=== PATIENT | female | born 1965 | race Asian ===

== ENCOUNTER → 2017-04-12 | Outpatient (CLI) | payer OTHER | END | disposition home or self-care (01) | LOC: MAMMO 08:04 | DX: Z12.31 Encounter for screening mammogram for malignant neoplasm of breast (principal) | CPT/HCPCS: G0202 ==

== ENCOUNTER → 2018-07-12 | Day surgery (SDC) | payer OTHER ==
[~2018-07-12] MED LIST: HYDR50CA2 PO; IV RINGERS,LACTATED 1000ML 1,000 ML IV SCH; LIDOCAINE 2% PF 5 ML VIAL. ONE; PROPOFOL 40 ML IV ONE
[2018-07-12 10:31] VITALS: BP 109/68
--- NOTE | 2018-07-13 01:14 | CONS ---
DATE OF CONSULTATION: 07/12/2018 REASON FOR CONSULTATION: Colorectal screening. HISTORY OF PRESENT ILLNESS: A 53-year-old female, whose past medical history is significant for diverticulitis, osteoarthrosis, is seen for a screening colon exam. Bowel habits are regular at this time without diarrhea or constipation. There has been no melena and/or hematochezia. She has had a prior diverticulitis, which responded to antibiotics. In addition, on the CAT scan, hepatic lesions were encountered and/or hepatic adenoma or focal nodular hyperplasia and surveillance imaging in 6 months to reassess will be coordinated. She is otherwise doing well. No additional complaints. PAST MEDICAL HISTORY: Osteoarthrosis, diverticulitis. ALLERGIES: None. MEDICATIONS: Includes hydroxyzine pamoate 50 mg daily. FAMILY HISTORY: Unknown. SOCIAL HISTORY: She is a social drinker, nonsmoker. PAST SURGICAL HISTORY: Noncontributory. REVIEW OF SYSTEMS: As above. PHYSICAL EXAMINATION: GENERAL: Reveals a well-nourished, well-developed female who is alert and cooperative, in no acute distress. VITAL SIGNS: Pulse 70, respiratory rate is 18. HEENT: Reveals normocephalic and atraumatic head. Pupils and extraocular muscles are not tested. Sclerae are anicteric. NECK: Supple. LUNGS: Clear. CARDIOVASCULAR: Reveals an S1, S2 without S3, S4 or appreciable murmur. ABDOMEN: Reveals soft abdomen, normal bowel sounds without appreciable hepatosplenomegaly. EXTREMITIES: Reveals no cyanosis, clubbing or edema. IMPRESSION: Colorectal screening with history of diverticulitis is recommended at that time. Risks and benefits of procedure including risk of hemorrhage and perforation during the operation have been discussed. The patient is willing to proceed. AJAY STRAUSS MD DR: ODETTE/marissa JOB#: [id number] / [id number]
--- NOTE | 2018-07-15 16:07 | PATHOLOGY ---
[facility] Accession Number: [id number] . 01 Material submitted: . SIGMOID POLYP . 01 Clinical history: . Colon screening . 02 Diagnosis: Colon biopsy, sigmoid polyp: - Tubular adenoma. (JPM:cdoy; 07/15/2018) QMS/07/15/2018 . 02 Comment: There is no high-grade dysplasia or evidence of malignancy. (JPM:cody; 07/15/2018) . 02 Electronically signed: . Jersey Montoya MD, Pathologist NPI- [id number] . 01 Gross description: . The specimen is received in formalin, labeled "Brandon, Trini, sigmoid polyp", is a trinidad, rubbery, sessile polyp measuring 0.4 x 0.3 x 0.2 cm, inked black, bisected and entirely submitted in A1. ([facility]; 07/12/2018) SHS/SHS . 02 Pathologist provided ICD-10: D12.5 . 02 CPT . 823325 Specimen Comment: A courtesy copy of this report has been sent to Specimen Comment: [phone], . Specimen Comment: Report sent to / DR ZHAO Performed at: 01 [facility] [address], [place], [place] [id number] MD Owen Sanchez MD Phone: [phone] Performed at: 02 [facility] [address], [place] [id number] MD Jersey Montoya MD Phone: [phone]
== END | disposition home or self-care (01) ==
LOC: SURG 08:53
PROVIDERS: ATTEND Internal Medicine Gastroenterology
DX: Z12.11 Encounter for screening for malignant neoplasm of colon (principal); D12.5 Benign neoplasm of sigmoid colon; K57.30 Diverticulosis of large intestine without perforation or abscess without bleeding; K64.0 First degree hemorrhoids; M19.90 Unspecified osteoarthritis, unspecified site; Z87.19 Personal history of other diseases of the digestive system; Z79.899 Other long term (current) drug therapy; Z72.89 Other problems related to lifestyle
CPT/HCPCS: 45385; 88305; J2001; J2704; 45380

== ENCOUNTER → 2018-09-07 | Outpatient (CLI) | payer OTHER ==
[2018-07-12 10:31] VITALS: BP 109/68
[~2018-09-07] MED LIST changes: -IV RINGERS,LACTATED 1000ML 1,000 ML IV SCH; -LIDOCAINE 2% PF 5 ML VIAL. ONE; -PROPOFOL 40 ML IV ONE
--- NOTE | 2018-09-10 10:31 | RAD ---
DATE: 09/07/2018 EXAM: MAMMO RAYSA SCREENING BILATERAL HISTORY: Routine screening COMPARISON: 04/12/2017 This study was interpreted with the benefit of Computerized Aided Detection (CAD). Breast Density: DENSE The breast parenchyma is dense, which could reduce the sensitivity of mammography. Breast parenchyma level density D. FINDINGS: 2-D and 3-D tomosynthesis imaging was performed in CC and MLO projections. The extreme density of these breasts limits the sensitivity of mammography. No new or enlarging breast densities are seen. Benign type calcifications are present. No suspicious microcalcifications have developed. IMPRESSION: 1. Extremely dense breasts. 2. Stable mammograms without evidence of malignancy. BI-RADS CATEGORY: 2 BENIGN FINDING(S) RECOMMENDED FOLLOW-UP: 12M 12 MONTH FOLLOW-UP PQRS compliance statement: Patient information was entered into a reminder system with a target due date for the next mammogram. Mammography is a sensitive method for finding small breast cancers, but it does not detect them all and is not a substitute for careful clinical examination. A negative mammogram does not negate a clinically suspicious finding and should not result in delay in biopsying a clinically suspicious abnormality. "Our facility is accredited by the [employer] Mammography Program."
== END | disposition home or self-care (01) ==
LOC: MAMMO 10:05
PROVIDERS: ATTEND Obstetrics & Gynecology
DX: Z12.31 Encounter for screening mammogram for malignant neoplasm of breast (principal); N64.89 Other specified disorders of breast
CPT/HCPCS: 77063; 77067

== ENCOUNTER → 2018-11-26 | Outpatient (CLI) | payer OTHER ==
[2018-07-12 10:31] VITALS: BP 109/68
[~2018-11-26] VITALS: Ht 160 cm; Wt 59.0 kg
[~2018-11-26] MED LIST changes: +NORMAL SALINE IV ONE; +SINCALIDE IV ONE
--- NOTE | 2018-11-26 09:41 | RAD ---
Complete abdominal ultrasound 11/26/2018 INDICATION: Abdominal pain, right upper abdomen COMPARISON STUDY: None FINDINGS: Ultrasound evaluation of the abdomen was performed. Static images are submitted to PACS. Partially visualized portions of the pancreas are grossly unremarkable. Visualized portions of the aorta and IVC are grossly unremarkable. There is an echogenic mass in the right lobe of liver measuring 4.4 x 4.2 x 4.2 cm. The liver appears to be normal in size. No other focal hepatic lesions are seen. The gallbladder is normal appearance without evidence of wall thickening, most pronounced, or sludge. Common bile duct is nondilated at 4 mm. Right kidney is normal in appearance measuring 10.4 cm in length. The spleen is normal in size measuring 8 cm in length. Left kidney is unremarkable in appearance measuring 11.5 cm in length. IMPRESSION: Echogenic, geographic mass in the right liver measuring 4.4 cm in diameter. The appearance is nonspecific. Recommend further characterization via hepatic protocol MRI. Electronically signed by: Joe Andrews MD (11/26/2018 9:38 AM) [facility]
--- NOTE | 2018-11-26 15:41 | RAD ---
HEPATOBILIARY SCAN WITH EJECTION FRACTION 11/26/2018 3:38 PM History: Right upper quadrant abdominal pain. Procedure: Serial static images are obtained of the liver and biliary system in the frontal projection following IV administration of 5.5 mCi of Technetium 99m Choletec. After filling of the gallbladder, 1.2 mcg of sincalide were infused over 30 minutes and dynamic imaging continued over this period. The gallbladder ejection fraction was calculated. Findings: There is prompt hepatic clearance of tracer from the blood pool. There is homogeneous distribution throughout the liver. The gallbladder ejection fraction measures 17% (normal gallbladder EF is 35% or greater). IMPRESSION: 1. The cystic duct and common bile duct are patent. Negative for acute cholecystitis. 2. The gallbladder ejection fraction abnormally low. Findings may indicate chronic cholecystitis or gallbladder dyskinesia. Electronically signed by: Joe Andrews MD (11/26/2018 3:39 PM) [facility]
== END | disposition home or self-care (01) ==
LOC: US 15:22
PROVIDERS: ATTEND Internal Medicine Gastroenterology
DX: R16.0 Hepatomegaly, not elsewhere classified (principal)
CPT/HCPCS: 76700; 78227; A9537; J2805

== ENCOUNTER 2018-12-12 06:43 | Day surgery (SDC) | payer OTHER ==
[~2018-12-12] VITALS: Ht 162.6 cm; Wt 60.0 kg
[~2018-12-12 06:43] MED LIST changes: +BUPIVACAINE-EPI 0.25%-1:200000 MPF 30 ML VIAL. INJ ONE; +CHLO4TAB20 PO; +INDOCYANINE GREEN 2.5 MG in TOTAL VOLUME SYRINGE 1 ML IVP ONE; +INDOCYANINE GREEN 25 MG VIAL. IVP ONE; -NORMAL SALINE IV ONE; -SINCALIDE IV ONE
[2018-12-12] MEDS ORDERED: LIDOCAINE 1% PF 2 ML VIAL. ID PRN (07:00)
[2018-12-12] MEDS ORDERED: HYDROmorphone 2 MG/ML VIAL IV PRN (07:00)
[2018-12-12] MEDS ORDERED: ONDANSETRON PF 4 MG/2 ML VIAL. IV PRN (07:00)
[2018-12-12] MEDS ORDERED: fentaNYL PF VIAL 100 MCG/2 ML VIAL IV PRN (07:00)
[2018-12-12] MEDS ORDERED: PROCHLORPERAZINE 10 MG/2 ML VIAL. IV PRN (07:00)
[2018-12-12] MEDS ORDERED: MORPHINE SULFATE 2 MG/ML VIAL. IV PRN (07:00)
[2018-12-12] MEDS: IV RINGERS,LACTATED 1000ML 1,000 ML IV SCH ×2 (07:19→09:35)
[2018-12-12] MEDS ORDERED: ONDANSETRON PF 4 MG/2 ML VIAL. ONE (07:45)
[2018-12-12] MEDS ORDERED: PROPOFOL 20 ML IV ONE (07:45)
[2018-12-12] MEDS ORDERED: ACETAMINOPHEN 500 MG TABLET PO ONE (07:45)
[2018-12-12] MEDS ORDERED: LIDOCAINE 2% PF 5 ML VIAL. ONE (07:45)
[2018-12-12] MEDS ORDERED: DEXAMETHASONE SOD PHOS 20 MG/5 ML VIAL. ONE (07:45)
[2018-12-12] MEDS ORDERED: MIDAZOLAM HCL/PF 2 MG/2 ML VIAL. ONE (07:46)
[2018-12-12] MEDS ORDERED: fentaNYL PF VIAL 100 MCG/2 ML VIAL ONE (07:46)
[2018-12-12] MEDS ORDERED: ROCURONIUM 50 MG/5 ML VIAL. ONE (07:46)
[2018-12-12] MEDS ORDERED: PHENYLEPHRINE in 0.9% NACL PF 1 MG/10 ML SYRINGE. IV ONE (08:26)
[2018-12-12] MEDS ORDERED: GLYCOPYRROLATE 1 MG/5 ML VIAL. ONE (08:26)
[2018-12-12] MEDS ORDERED: ePHEDrine PF IN SALINE 50 MG/10 ML SYRINGE. IV ONE (08:27)
[2018-12-12] MEDS ORDERED: NEOSTIGMINE METHYLSULFATE 5 MG/5 ML SYRINGE. ONE (08:43)
[2018-12-12] MEDS ORDERED: SEVOFLURANE 61 TO 120 MINUTES. IH ONE (08:43)
[2018-12-12] MEDS ORDERED: KETOROLAC 30 MG/ML INJ FOR OR. INJ ONE (09:05)
--- NOTE | 2018-12-12 09:05 | PDOC4 ---
Operative Note Operative Note Date: 12/12/2018 Preoperative diagnosis: Biliary dyskinesia Postoperative diagnosis: Same Procedure: Robotic-assisted laparoscopic cholecystectomy Surgeon: Chris Specimen: Gallbladder Dictation: Patient is a 53-year-old female is complained of right upper quadrant abdominal pain HIDA scan showing ejection fraction of 17%. Procedure of robotic- assisted laparoscopic cholecystectomy was explained to the patient in detail all risks benefits were also discussed occluding bleeding infection injury to intra- abdominal contents possibly necessitating further open operations alternatives to this procedure also discussed with patient who seemed to understand and gave both verbal and written consent to have the procedure performed. Patient was taken to the operating room placed in supine position general anesthesia was initiated once patient was sleep and intubated patient's abdomen was prepped and draped usual sterile fashion using ChloraPrep. An area just below the umbilicus was injected with quarter percent Marcaine with epinephrine incision was andrew blade scalpel and a Veress needle was placed within the abdomen creating pneumoperitoneum once this was complete 8mm da David port was placed and the camera was placed within the abdomen and inspected. No other abnormalities were noted a 8mm da David port was placed in the right mid abdomen and one in the left mid abdomen dementia robot was brought in and docked all port sites using a grasper and cautery the gallbladder was grasped and retracted towards the right upper quadrant the adherent tissues of the triangle were taken down with blunt and sharp dissection using a clot cautery exposing the cystic duct and cystic artery both were clipped with hemo-lock clips. Prior to this the fluorescein dye was used no accessory ducts were noted as good anatomy of the cystic and common bile duct. Cystic duct was transected as well as the cystic artery. The gallbladder was taken off the liver with a hook cautery. Surgeon returned to the operative field using a grasper and a 8 mm bag the gallbladder was placed within the Endo Catch bag and removed from the right mid abdominal port. Ports were all removed the pneumoperitoneum reduced all port sites were closed for septic and a Monocryl Mastisol Steri-Strips and island dressings were applied. Patient was awakened and asked bated operating room taken to recovery in stable condition all sponge instrument needle counts listed as correct estimated blood loss less than 5 mL. RENAE PAYNE MD Dec 12, 2018 09:05
--- NOTE | 2018-12-12 09:07 | DISCH ---
DISCHARGE INSTRUCTIONS Condition on Discharge Condition on Discharge: Stable Activity After Discharge Activity Instructions for Disc: Avoid exertion Other activity instructions: no lifting more than 20 pounds for 2 weeks Diet after Discharge Diet after Discharge: Low Fat Wound Incision Care Other wound/incision instructi: May shower in 24 hours Contacting the after DC Call your doctor for: If your condition worsens Follow-Up Follow up with: Dr. Payne in 2 weeks RENAE PAYNE MD Dec 12, 2018 09:07
[2018-12-12] MEDS: fentaNYL PF VIAL 100 MCG/2 ML VIAL IV PRN ×2 (09:35→10:03)
[2018-12-12] MEDS ORDERED: OXYC1TAB15 PO (09:38)
[2018-12-12] MEDS ORDERED: oxyCODONE/APAP 5/325 1 TAB TABLET PO ONE (10:00)
[2018-12-12 10:37] VITALS: BP 114/55
--- NOTE | 2018-12-13 18:06 | PATHOLOGY ---
[facility] Accession Number: [id number] . 01 Material submitted: . gallbladder - GALLBLADDER . 01 Clinical history: . Biliary dyskinesia . 02 Diagnosis: Gallbladder, laparoscopic cholecystectomy: - Mild chronic cholecystitis. (JPM:manager gaming; 12/13/2018) MBR/12/13/2018 . 02 Comment: No calculi are identified within the gallbladder lumen or specimen container. Sections of the gallbladder show congestion and focal very mild chronic inflammation. There is no evidence of malignancy. (JPM:manager gaming; 12/13/2018) . 02 Electronically signed: . Jersey Montoya MD, Pathologist NPI- [id number] . 01 Gross description: . The specimen is received in formalin, labeled "Trini Taylor, gallbladder". Received is an intact gallbladder measuring 7.8 x 3.3 x 3.3 cm in greatest dimensions displaying a blue-fernandes serosal surface. Opening the specimen reveals a velvety, bile-stained mucosa with a gallbladder wall thickness of 0.1 cm. Calculi are not present, and no masses or lesions are noted grossly. Strategic Buyer sections, to include the proximal margin, are submitted in cassette A1. (CAA; 12/12/2018) QAC/QAC . 02 Pathologist provided ICD-10: K81.1 . 02 CPT . 568616 Specimen Comment: A courtesy copy of this report has been sent to Specimen Comment: [phone], . Specimen Comment: Report sent to and Performed at: [address], [place], [place] [id number] MD Owen Sanchez MD Phone: [phone] Performed at: 02 [facility] [address] [place], [place] [id number] MD Jersey Montoya MD Phone: [phone]
== END 2018-12-12 13:08 | disposition home or self-care (01) ==
LOC: SURG 06:43
PROVIDERS: ATTEND Surgery
DX: K81.1 Chronic cholecystitis (principal); Z86.010 Personal history of colon polyps; Z72.89 Other problems related to lifestyle; Z87.39 Personal history of other diseases of the musculoskeletal system and connective tissue; Z98.890 Other specified postprocedural states
CPT/HCPCS: 47562; 88304; A7015; J0171; J1100; J1885; J2001; J2250; J2370; J2405; J2704; J2710; J3010; J3490; J7030; J7120; S2900

== ENCOUNTER 2018-12-15 11:57 | Emergency (ER) | payer OTHER ==
[~2018-12-15] VITALS: Ht 162.6 cm; Wt 59.0 kg
[~2018-12-15 11:57] MED LIST changes: -BUPIVACAINE-EPI 0.25%-1:200000 MPF 30 ML VIAL. INJ ONE; -INDOCYANINE GREEN 2.5 MG in TOTAL VOLUME SYRINGE 1 ML IVP ONE; -INDOCYANINE GREEN 25 MG VIAL. IVP ONE; +OXYC1TAB15 PO
[2018-12-15] MEDS ORDERED: IV NORMAL SALINE 1000ML BAG 1,000 ML IV SCH (12:18)
--- NOTE | 2018-12-15 12:27 | PHYS DOC ---
Past Medical History Past Medical History: Arthritis Past Surgical History: Cholecystectomy Drug Use: None Adult General Chief Complaint Chief Complaint: POST-OP PROBLEM HPI HPI Patient is a 53 year old female who presents with RLQ abdominal pain and vomiting Symptoms started last night, unable to keep down foods or fluids today 12/12 Had GB removed with DR Perez dysfunction, no stones. She had been doing well. Pain post op was upper and RUQ, dull ache. 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 No fevers. No UTI symptoms She is resting in no distress. Incisions healing well Review of Systems Review of Systems Constitutional: Denies fever or chills [] Eyes: Denies change in visual acuity, redness, or eye pain [] HENT: Denies nasal congestion or sore throat [] Respiratory: Denies cough or shortness of breath [] Cardiovascular: No additional information not addressed in HPI [] GI: Denies bloody stools or diarrhea [] C/o RLQ abdominal pain and vomiting : Denies dysuria or hematuria [] Musculoskeletal: Denies back pain or joint pain [] Integument: Denies rash or skin lesions [] Neurologic: Denies headache, focal weakness or sensory changes [] Endocrine: Denies polyuria or polydipsia [] All other systems were reviewed and found to be within normal limits, except as documented in this note. Current Medications Current Medications Current Medications Medications (Trade) Dose Ordered Sig/Nish Start Time Stop Time Status Last Admin Dose Admin Info (CONTRAST GIVEN -- Rx MONITORING) 1 each PRN DAILY PRN 12/15/18 13:30 12/15/18 16:21 DC Iohexol (Omnipaque 300 Mg/ml) 75 ml 1X ONCE 12/15/18 13:30 12/15/18 13:31 DC 12/15/18 14:13 75 ML Morphine Sulfate (Morphine Sulfate) 4 mg PRN Q15MIN PRN 12/15/18 12:30 12/15/18 16:21 DC 12/15/18 12:38 4 MG Ondansetron HCl (Zofran) 4 mg 1X ONCE 12/15/18 12:30 12/15/18 12:31 DC 12/15/18 12:38 4 MG Sodium Chloride 1,000 ml @ 1,000 mls/hr Q1H 12/15/18 12:18 12/15/18 13:17 DC 12/15/18 12:38 1,000 MLS/HR Allergies Allergies Allergies Coded Allergies Type Severity Reaction Last Updated Verified No Known Drug Allergies 12/12/18 No Physical Exam Physical Exam Constitutional: Well developed, well nourished, no acute distress, non-toxic appearance. [] HENT: Normocephalic, atraumatic, bilateral external ears normal, oropharynx mois t, no oral exudates, nose normal. [] Eyes: PERRLA, EOMI, conjunctiva normal, no discharge. [] Neck: Normal range of motion, no tenderness, supple, no stridor. [] Cardiovascular:Heart rate regular rhythm, no murmur [] Lungs & Thorax: Bilateral breath sounds clear to auscultation [] Abdomen: Bowel sounds normal, soft, no masses, no pulsatile masses. [] Incisions appears well, no redness or drainage, well approximated. Acute RLQ pain with guarding and rebound. Skin: Warm, dry, no erythema, no rash. [] Back: No tenderness, no CVA tenderness. [] Extremities: No tenderness, no cyanosis, no clubbing, ROM intact, no edema. [] Neurologic: Alert and oriented X 3, normal motor function, normal sensory func tion, no focal deficits noted. [] Psychologic: Affect normal, judgement normal, mood normal. [] Current Patient Data Vital Signs Vital Signs Date Time Temp Pulse Resp B/P (MAP) Pulse Ox O2 Delivery O2 Flow Rate FiO2 12/15/18 15:31 82 18 128/72 (90) 97 Room Air 12/15/18 12:00 97.8 97.8 Lab Values Laboratory Tests Test 12/15/18 12:14 White Blood Count 7.4 x10^3/uL (4.0-11.0) Red Blood Count 4.30 x10^6/uL (3.50-5.40) Hemoglobin 13.7 g/dL (12.0-15.5) Hematocrit 39.8 % (36.0-47.0) Mean Corpuscular Volume 93 fL (79-100) Mean Corpuscular Hemoglobin 32 pg (25-35) Mean Corpuscular Hemoglobin Concent 34 g/dL (31-37) Red Cell Distribution Width 12.9 % (11.5-14.5) Platelet Count 271 x10^3/uL (140-400) Neutrophils (%) (Auto) 84 % (31-73) H Lymphocytes (%) (Auto) 10 % (24-48) L Monocytes (%) (Auto) 5 % (0-9) Eosinophils (%) (Auto) 0 % (0-3) Basophils (%) (Auto) 0 % (0-3) Neutrophils # (Auto) 6.2 x10^3/uL (1.8-7.7) Lymphocytes # (Auto) 0.7 x10^3/uL (1.0-4.8) L Monocytes # (Auto) 0.4 x10^3/uL (0.0-1.1) Eosinophils # (Auto) 0.0 x10^3/uL (0.0-0.7) Basophils # (Auto) 0.0 x10^3/uL (0.0-0.2) Sodium Level 136 mmol/L (136-145) Potassium Level 4.0 mmol/L (3.5-5.1) Chloride Level 98 mmol/L (98-107) Carbon Dioxide Level 26 mmol/L (21-32) Anion Gap 12 (6-14) Blood Urea Nitrogen 9 mg/dL (7-20) Creatinine 0.9 mg/dL (0.6-1.0) Estimated GFR (Cockcroft-Gault) 65.2 BUN/Creatinine Ratio 10 (6-20) Glucose Level 134 mg/dL (70-99) H Calcium Level 9.4 mg/dL (8.5-10.1) Total Bilirubin 0.8 mg/dL (0.2-1.0) Aspartate Amino Transferase (AST) 352 U/L (15-37) H Alanine Aminotransferase (ALT) 399 U/L (14-59) H Alkaline Phosphatase 127 U/L (46-116) H Total Protein 8.5 g/dL (6.4-8.2) H Albumin 3.9 g/dL (3.4-5.0) Albumin/Globulin Ratio 0.8 (1.0-1.7) L Lipase 155 U/L (73-393) Laboratory Tests 12/15/18 12:14 Laboratory Tests 12/15/18 12:14 EKG EKG [] Radiology/Procedures Radiology/Procedures [] PATIENT: LIZZ BOLDEN ACCOUNT: [id number] : 1965 LOCATION: ER AGE: 53 SEX: F EXAM STATUS: REG ER ORD. PHYSICIAN: JUDITH OTT APRN REASON: RLQ abdominal pain, vomiting, recent GB removal PROCEDURE: CT ABD PELV W/ IV CONTRST ONLY CT ABD PELV W/ IV CONTRST ONLY Indication: Right lower quadrant pain, vomiting, recent cholecystectomy Exposure: One or more of the following individualized dose reduction techniques were utilized for this examination: 1. Automated exposure control 2. Adjustment of the mA and/or kV according to patient size 3. Use of iterative reconstruction technique. Technique: Intravenous contrast was given. No oral contrast per request. Comparison: None FINDINGS: Mild atelectasis in the lung bases. Hypodense mass in the right lobe of the liver measures 4.1 cm. This demonstrates a mildly enhancing nodular periphery. No other liver mass is identified. Spleen unremarkable. Pancreas unremarkable although margins are difficult to delineate from adjacent unopacified bowel. No evidence of adrenal mass. Kidneys demonstrate symmetric enhancement without hydronephrosis or mass. Gallbladder is surgically absent. There is mild stranding and ill-defined fluid density in the gallbladder fossa with fluid extending into the right paracolic gutter. Mild perihepatic fluid. Moderate pelvic ascites. All these components of fluid measure less than 20 Hounsfield units, compatible with simple fluid. No organized fluid collection or abscess is seen. Mild intrahepatic biliary ductal dilatation., Common bile duct is mildly dilated, measuring 9 mm. Aorta is nonaneurysmal. No significant lymph node enlargement. Urinary bladder is grossly unremarkable. No evidence of pelvic mass. No significant small bowel dilatation to suggest obstruction. Hdje-xc-ssocrkbr retained stool in the colon. No definite evidence of acute colitis. The appendix is within normal limits. No evidence of pneumoperitoneum. Vertebral body height and alignment are intact. Small lucent lesion within L1 vertebral body, likely a hemangioma. No aggressive bone destruction is seen. Dense breasts are partially visualized bilaterally. IMPRESSION: 1. Mild ill-defined fluid density and stranding in the gallbladder fossa, as could be expected postoperatively. However, there is also mild right perihepatic and paracolic gutter fluid and moderate pelvic fluid. Significance is not certain, but bile leak or peritonitis is not excludable. 2. Large mass in the right lobe of liver, may represent a hemangioma. Nonemergent confirmation could be obtained with multiphase CT of the liver or MRI of the liver. Electronically signed by: Donato Costello MD (12/15/2018 2:02 PM) [facility] Impressions: RLQ abdominal pain, post op pain, vomiting Course & Med Decision Making Course & Med Decision Making Pertinent Labs and Imaging studies reviewed. (See chart for details) []Post op GB 12/12, was doing well until last night, new pain to the RLQ with vomiting Surgical incisions appear well. Will obtain labs and CT IV fluids pain and nausea control Pain controlled, she reports she is feeling better. VSS Discussed lab and CT. 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 Discussed CT finding and bile leak? Schaller and zofran Continue liquid diet. Call Surgery for follow up with in 48 hours, discussed strict return precautions, home care and reasons to return to the ER Dragon Disclaimer Dragon Disclaimer This electronic medical record was generated, in whole or in part, using a voice recognition dictation system. Departure Departure Impression: Primary Impression: Right lower quadrant abdominal pain Additional Impression: Pelvic fluid collection Referrals: DEIRDRE ZHAO MD (PCP) RENAE PEREZ MD Patient Instructions: Abdominal Pain Additional Instructions: Go home and rest Medications as prescribed CT with concerns of pelvic fluid, questionable bile leak. I discussed your case with Dr Alves, general surgery Call the office first thing Sunday for follow up Return immediately for uncontrolled pain vomiting or fevers Problem Qualifiers JUDITH OTT APRN Dec 15, 2018 12:26
[2018-12-15] MEDS ORDERED: ONDANSETRON PF 4 MG/2 ML VIAL. IV ONE (12:30)
[2018-12-15] MEDS ORDERED: MORPHINE SULFATE 4 MG/ML VIAL. IV/SQ PRN (12:30)
[2018-12-15 12:32] LABS: BASO % 0 % (0-3); EOS % 0 % (0-3); HEMATOCRIT 39.8 % (36.0-47.0); HEMOGLOBIN 13.7 g/dL (12.0-15.5); LYMPH # 0.7 x10^3/uL (1.0-4.8); LYMPH % 10 % (24-48); MEAN CORPUSCULAR HEMOGLOBIN 32 pg (25-35); MEAN CORPUSCULAR HGB CONC 34 g/dL (31-37); MEAN CORPUSCULAR VOLUME 93 fL (79-100); MONO # 0.4 x10^3/uL (0.0-1.1); MONO % 5 % (0-9); NEUT # 6.2 x10^3/uL (1.8-7.7); NEUT % 84 % (31-73); PLATELET COUNT 271 x10^3/uL (140-400); RED CELL DISTRIBUTION WIDTH 12.9 % (11.5-14.5); WHITE BLOOD COUNT 7.4 x10^3/uL (4.0-11.0)
[2018-12-15 12:37] LABS: CALCIUM 9.4 mg/dL (8.5-10.1); CREATININE 0.9 mg/dL (0.6-1.0); GFR 65.2
[2018-12-15 12:43] LABS: ALBUMIN 3.9 g/dL (3.4-5.0); ALBUMIN/GLOBULIN RATIO 0.8 (1.0-1.7); TOTAL BILIRUBIN 0.8 mg/dL (0.2-1.0); TOTAL PROTEIN 8.5 g/dL (6.4-8.2)
[2018-12-15] MEDS ORDERED: CONTRAST GIVEN. MC PRN (13:30)
[2018-12-15] MEDS ORDERED: IOHEXOL 300 MG/ML 100ML VIAL. IV ONE (13:30)
--- NOTE | 2018-12-15 14:04 | RAD ---
CT ABD PELV W/ IV CONTRST ONLY Indication: Right lower quadrant pain, vomiting, recent cholecystectomy Exposure: One or more of the following individualized dose reduction techniques were utilized for this examination: 1. Automated exposure control 2. Adjustment of the mA and/or kV according to patient size 3. Use of iterative reconstruction technique. Technique: Intravenous contrast was given. No oral contrast per request. Comparison: None FINDINGS: Mild atelectasis in the lung bases. Hypodense mass in the right lobe of the liver measures 4.1 cm. This demonstrates a mildly enhancing nodular periphery. No other liver mass is identified. Spleen unremarkable. Pancreas unremarkable although margins are difficult to delineate from adjacent unopacified bowel. No evidence of adrenal mass. Kidneys demonstrate symmetric enhancement without hydronephrosis or mass. Gallbladder is surgically absent. There is mild stranding and ill-defined fluid density in the gallbladder fossa with fluid extending into the right paracolic gutter. Mild perihepatic fluid. Moderate pelvic ascites. All these components of fluid measure less than 20 Hounsfield units, compatible with simple fluid. No organized fluid collection or abscess is seen. Mild intrahepatic biliary ductal dilatation., Common bile duct is mildly dilated, measuring 9 mm. Aorta is nonaneurysmal. No significant lymph node enlargement. Urinary bladder is grossly unremarkable. No evidence of pelvic mass. No significant small bowel dilatation to suggest obstruction. Leyc-ep-kgkdafkk retained stool in the colon. No definite evidence of acute colitis. The appendix is within normal limits. No evidence of pneumoperitoneum. Vertebral body height and alignment are intact. Small lucent lesion within L1 vertebral body, likely a hemangioma. No aggressive bone destruction is seen. Dense breasts are partially visualized bilaterally. IMPRESSION: 1. Mild ill-defined fluid density and stranding in the gallbladder fossa, as could be expected postoperatively. However, there is also mild right perihepatic and paracolic gutter fluid and moderate pelvic fluid. Significance is not certain, but bile leak or peritonitis is not excludable. 2. Large mass in the right lobe of liver, may represent a hemangioma. Nonemergent confirmation could be obtained with multiphase CT of the liver or MRI of the liver. Electronically signed by: Donato Costello MD (12/15/2018 2:02 PM) [facility]
[2018-12-15 15:31] VITALS: BP 128/72
== END 2018-12-15 16:18 | disposition home or self-care (01) ==
LOC: ER 11:57
DX: G89.18 Other acute postprocedural pain (principal); R10.11 Right upper quadrant pain; R10.31 Right lower quadrant pain; R18.8 Other ascites; R11.10 Vomiting, unspecified; Z90.49 Acquired absence of other specified parts of digestive tract
CPT/HCPCS: 36415; 74177; 80053; 83690; 85025; 96361; 96374; 96375; 99285; J2270; J2405; J7030; Q9967

== ENCOUNTER 2018-12-17 11:01 | Inpatient (IN) | payer OTHER ==
[~2018-12-17] VITALS: Ht 162.6 cm; Wt 59.9 kg
[2018-12-17 12:09] VITALS: BP 107/59
[2018-12-17] MEDS ORDERED: 0.9 % SODIUM CHLORIDE 10 ML DISP.SYRIN. IV PRN (12:15)
--- NOTE | 2018-12-17 12:30 | PDOC1 ---
MELISSA RANDOLPH LINSEED OIL PRESS TENDER 12/17/18 1230: History and Physical Date of Admission Date of Admission DATE: 12/17/18 TIME: 12:25 Identification/Chief Complaint Chief Complaint abdominal pain Source Source: Chart review, Patient History of Present Illness History of Present Illness S/p lap aleksandra 4 days ago. Abdominal pain, swelling started Sunday. Seen at [facility] ER 12/15--elevated LFTS, and CT with small amount of fluid in GB fossa. Seen in clinic today, continued pain, emesis x 1 Past Medical History GI: Diverticulosis Past Surgical History Past Surgical History: Cholecystectomy Current Medications Current Medications Current Medications Sodium Chloride (Normal Saline Flush) 3 ml QSHIFT PRN IV AFTER MEDS AND BLOOD DRAWS; Start 12/17/18 at 12:15 Sodium Chloride 1,000 ml @ 100 mls/hr Q10H IV ; Start 12/17/18 at 12:04 Ondansetron HCl (Zofran) 4 mg PRN Q4HRS PRN IV NAUSEA/VOMITING; Start 12/17/18 at 12:15 Active Scripts Active Reported Percocet 5-325 Mg Tablet (Oxycodone/Acetaminophen) 1 Each Tablet 1-2 Tab PO Q4-6HRS PRN LAST DOSE GIVEN: Chlorpheniramine Maleate 4 Mg Tablet 4 Mg PO PRN PRN Hydroxyzine Pamoate 50 Mg Capsule 100 Mg PO DAILY Allergies Allergies: Coded Allergies: No Known Drug Allergies (Unverified , 12/12/18) ROS General: No: Chills, Other (fevers) PSYCHOLOGICAL ROS: No: Anxiety, Depression Eyes: No Blurry vision, No Double vision HEENT: No: Heacaches, Sore Throat Hematological and Lymphatic: No: Bleeding Problems, Blood Clots Respiratory: No: Cough, Shortness of breath Cardiovascular: No Chest Pain, No Palpitations Gastrointestinal: Yes Other (see hpi) Genitourinary: No Dysuria, No Hematuria Musculoskeletal: No Joint Pain, No Muscle Pain Neurological: No Numbness/Tingling Skin: No Pruritus, No Rash Physical Exam General: Alert, Oriented X3, Cooperative, No acute distress HEENT: PERRLA Lungs: Clear to auscultation, Normal air movement Heart: S1S2, RRR Abdomen: Soft, Other (TTP RUQ, lap sites c/d/i) Extremities: No clubbing, No cyanosis Skin: No rashes, No breakdown Neuro: Normal gait, Normal speech Psych/Mental Status: Mental status NL, Mood NL Vitals Vitals Vital Signs Date Time Temp Pulse Resp B/P (MAP) Pulse Ox O2 Delivery O2 Flow Rate FiO2 12/17/18 12:09 98.1 97 18 107/59 (75) 98 Room Air 98.1 VTE Prophylaxis Ordered VTE Prophylaxis Devices: Yes VTE Pharmacological Prophylaxi: Contraindicated Assessment/Plan Assessment/Plan s/p lap aleksandra repeat LFTS, HIDA scan RENAE PAYNE MD 12/17/18 1714: History and Physical Assessment/Plan Assessment/Plan Patient intially seen in clinic with complains of right abdominal pain. Reviewed lab showing increase in T. Bili 2.8 HIDA scan shows uptake and excreation into the CBD and into small intestine, but tracer in the peritoneal space likely represents bile leak from ducts of luschka. Will consult GI for evaluation for possible ERCP and IR for perc. drain of fluid. MELISSA RANDOLPH APRN Dec 17, 2018 12:30 RENAE PAYNE MD Dec 17, 2018 17:14
[2018-12-17] MEDS: IV NORMAL SALINE 1000ML BAG 1,000 ML IV SCH ×2 (12:45→23:01)
[2018-12-17] MEDS: MORPHINE SULFATE 2 MG/ML VIAL. IV PRN ×3 (13:16→22:23)
[2018-12-17 14:25] LABS: BASO % 0 % (0-3); EOS # 0.1 x10^3/uL (0.0-0.7); EOS % 1 % (0-3); HEMATOCRIT 38.5 % (36.0-47.0); HEMOGLOBIN 13.2 g/dL (12.0-15.5); LYMPH # 0.7 x10^3/uL (1.0-4.8); LYMPH % 9 % (24-48); MEAN CORPUSCULAR HEMOGLOBIN 32 pg (25-35); MEAN CORPUSCULAR HGB CONC 34 g/dL (31-37); MEAN CORPUSCULAR VOLUME 92 fL (79-100); MONO # 0.6 x10^3/uL (0.0-1.1); MONO % 7 % (0-9); NEUT # 6.5 x10^3/uL (1.8-7.7); NEUT % 83 % (31-73); PLATELET COUNT 261 x10^3/uL (140-400); RED BLOOD COUNT 4.17 x10^6/uL (3.50-5.40); RED CELL DISTRIBUTION WIDTH 13.1 % (11.5-14.5); WHITE BLOOD COUNT 7.8 x10^3/uL (4.0-11.0)
--- NOTE | 2018-12-17 14:26 | NUR ---
Patient c/o pain in right abdomen area. Digital Music Instructor observed a yellowish/orangish discoloration to right side of abdomen down to her groin area, area is warm, swollen, and very tender. Notified Anahy Fair APRN, she stated she would notify Dr. Perez and that the HIDA scan that has been ordered needs to be completed. Addendum: 12/17/18 at 1434 by LANDRY BOLTON RN Notified Dr. Perez, no new orders at this time, continue to monitor.
[2018-12-17 14:41] LABS: ALBUMIN 3.4 g/dL (3.4-5.0); ALBUMIN/GLOBULIN RATIO 0.7 (1.0-1.7); CALCIUM 8.8 mg/dL (8.5-10.1); CREATININE 0.9 mg/dL (0.6-1.0); GFR 65.2; POTASSIUM 3.4 mmol/L (3.5-5.1); TOTAL BILIRUBIN 2.1 mg/dL (0.2-1.0)
[2018-12-17] MEDS: ONDANSETRON PF 4 MG/2 ML VIAL. IV PRN (16:14)
--- NOTE | 2018-12-17 16:38 | RAD ---
Hepatobiliary scintigraphy 12/17/2018 INDICATION: Status post cholecystectomy with abdominal pain. COMPARISON: Hepatobiliary scintigraphy 11/26/2018 TECHNIQUE: Scintigraphic imaging of the biliary tree was performed after the intravenous administration of 5.5 mCi technetium 99m mebrofenin. FINDINGS: There is adequate hepatocellular uptake of the radiotracer. There is prompt radiotracer uptake identified within the biliary tree and small bowel. Extensive small bowel uptake is identified. However, there is radiotracer right identified with the right lower quadrant which correlates with area of peritoneal fluid on CT. Findings are suspicious for bile leak. IMPRESSION: Findings are suspicious for bile leak with suggestion of extraluminal radiotracer uptake in the right lower quadrant. Electronically signed by: Josette Heller MD (12/17/2018 4:35 PM) [facility]
[2018-12-17] MEDS: HYDROmorphone 2 MG/ML VIAL IV PRN ×2 (17:18→20:20)
[2018-12-17] MEDS: KETOROLAC 15 MG/ML VIAL. IV SCH ×2 (17:18→23:02)
--- NOTE | 2018-12-17 17:36 | NUR ---
Notified Dr. Kennedy of consult for patient. Per Dr. Kennedy patient needs drain placement today, not tomorrow. Nursing hot strip mill supervisor paged. Addendum: 12/17/18 at 1818 by LANDRY BOLTON RN Notified Kassie Nursing Manager Engine of situation. Per Kassie, Dr. Perez needs to be notified that Dr. Kennedy wants drain placement today and not tomorrow. Paged Dr. Perez, but doctor aboriginal home school liaison officer Dr. Alva returned call, report writer explained situation to physician, he stated that if Dr. Kennedy wants drain placed today then have IR place drain today. Notified Kassie what Nida stated, she said that Dr. Kennedy would have to speak to IR physician aboriginal home school liaison officer Dr. Hudson to have drain placed. Paged Dr. Kennedy for return call. Addendum: 12/17/18 at 1843 by LANDRY BOLTON RN Dr. Kennedy returned call, notified him of situation and he was upset at the idea that he had to call IR doctor aboriginal home school liaison officer. I explained to him that this is the order I received from my nursing hot strip mill supervisor and it needed to be a physician to physician call. Dr. Kennedy stated he would come immediately to see patient to see if drain needed placed today or tomorrow.
--- NOTE | 2018-12-17 18:56 | PDOC2 ---
CONSULT Date of Consult Date of Consult DATE: 12/17/18 TIME: 18:54 Reason for Consult Reason for Consult: Abd apin s/p aleksandra Past Medical History GI: Diverticulosis Past Surgical History Past Surgical History: Cholecystectomy Current Medications Current Medications Current Medications Sodium Chloride (Normal Saline Flush) 3 ml QSHIFT PRN IV AFTER MEDS AND BLOOD DRAWS; Start 12/17/18 at 12:15 Sodium Chloride 1,000 ml @ 100 mls/hr Q10H IV Last administered on 12/17/18at 12:45; Start 12/17/18 at 12:04 Ondansetron HCl (Zofran) 4 mg PRN Q4HRS PRN IV NAUSEA/VOMITING Last administered on 12/17/18at 16:14; Start 12/17/18 at 12:15 Morphine Sulfate (Morphine Sulfate) 2 mg PRN Q2HR PRN IV MODERATE PAIN Last administered on 12/17/18at 16:14; Start 12/17/18 at 13:15 Hydromorphone HCl (Dilaudid) 1 mg PRN Q3HRS PRN IV SEVERE PAIN Last administered on 12/17/18at 17:21; Start 12/17/18 at 17:15 Ketorolac Tromethamine (Toradol 15mg Vial) 15 mg Q6HRS IV Last administered on 12/17/18at 17:21; Start 12/17/18 at 18:00; Stop 12/19/18 at 17:59 Active Scripts Active Reported Percocet 5-325 Mg Tablet (Oxycodone/Acetaminophen) 1 Each Tablet 1-2 Tab PO Q4-6HRS PRN LAST DOSE GIVEN: Chlorpheniramine Maleate 4 Mg Tablet 4 Mg PO PRN PRN Hydroxyzine Pamoate 50 Mg Capsule 100 Mg PO DAILY Allergies Allergies: Coded Allergies: No Known Drug Allergies (Unverified , 12/12/18) Vitals VITALS Vital Signs Date Time Temp Pulse Resp B/P (MAP) Pulse Ox O2 Delivery O2 Flow Rate FiO2 12/17/18 17:50 98 Room Air 12/17/18 13:16 16 12/17/18 12:09 98.1 97 107/59 (75) 98.1 Labs Labs Laboratory Tests Test 12/17/18 12:15 12/17/18 14:15 White Blood Count 7.8 x10^3/uL (4.0-11.0) Red Blood Count 4.17 x10^6/uL (3.50-5.40) Hemoglobin 13.2 g/dL (12.0-15.5) Hematocrit 38.5 % (36.0-47.0) Mean Corpuscular Volume 92 fL (79-100) Mean Corpuscular Hemoglobin 32 pg (25-35) Mean Corpuscular Hemoglobin Concent 34 g/dL (31-37) Red Cell Distribution Width 13.1 % (11.5-14.5) Platelet Count 261 x10^3/uL (140-400) Neutrophils (%) (Auto) 83 % (31-73) Lymphocytes (%) (Auto) 9 % (24-48) Monocytes (%) (Auto) 7 % (0-9) Eosinophils (%) (Auto) 1 % (0-3) Basophils (%) (Auto) 0 % (0-3) Neutrophils # (Auto) 6.5 x10^3/uL (1.8-7.7) Lymphocytes # (Auto) 0.7 x10^3/uL (1.0-4.8) Monocytes # (Auto) 0.6 x10^3/uL (0.0-1.1) Eosinophils # (Auto) 0.1 x10^3/uL (0.0-0.7) Basophils # (Auto) 0.0 x10^3/uL (0.0-0.2) Sodium Level 133 mmol/L (136-145) Potassium Level 3.4 mmol/L (3.5-5.1) Chloride Level 97 mmol/L (98-107) Carbon Dioxide Level 28 mmol/L (21-32) Anion Gap 8 (6-14) Blood Urea Nitrogen 8 mg/dL (7-20) Creatinine 0.9 mg/dL (0.6-1.0) Estimated GFR (Cockcroft-Gault) 65.2 BUN/Creatinine Ratio 9 (6-20) Glucose Level 122 mg/dL (70-99) Calcium Level 8.8 mg/dL (8.5-10.1) Total Bilirubin 2.1 mg/dL (0.2-1.0) Direct Bilirubin 1.0 mg/dL (0.0-0.2) Aspartate Amino Transf (AST/SGOT) 63 U/L (15-37) Alanine Aminotransferase (ALT/SGPT) 163 U/L (14-59) Alkaline Phosphatase 157 U/L (46-116) Total Protein 8.0 g/dL (6.4-8.2) Albumin 3.4 g/dL (3.4-5.0) Albumin/Globulin Ratio 0.7 (1.0-1.7) Lipase 239 U/L (73-393) Laboratory Tests Test 12/17/18 12:15 12/17/18 14:15 White Blood Count 7.8 x10^3/uL (4.0-11.0) Red Blood Count 4.17 x10^6/uL (3.50-5.40) Hemoglobin 13.2 g/dL (12.0-15.5) Hematocrit 38.5 % (36.0-47.0) Mean Corpuscular Volume 92 fL (79-100) Mean Corpuscular Hemoglobin 32 pg (25-35) Mean Corpuscular Hemoglobin Concent 34 g/dL (31-37) Red Cell Distribution Width 13.1 % (11.5-14.5) Platelet Count 261 x10^3/uL (140-400) Neutrophils (%) (Auto) 83 % (31-73) Lymphocytes (%) (Auto) 9 % (24-48) Monocytes (%) (Auto) 7 % (0-9) Eosinophils (%) (Auto) 1 % (0-3) Basophils (%) (Auto) 0 % (0-3) Neutrophils # (Auto) 6.5 x10^3/uL (1.8-7.7) Lymphocytes # (Auto) 0.7 x10^3/uL (1.0-4.8) Monocytes # (Auto) 0.6 x10^3/uL (0.0-1.1) Eosinophils # (Auto) 0.1 x10^3/uL (0.0-0.7) Basophils # (Auto) 0.0 x10^3/uL (0.0-0.2) Sodium Level 133 mmol/L (136-145) Potassium Level 3.4 mmol/L (3.5-5.1) Chloride Level 97 mmol/L (98-107) Carbon Dioxide Level 28 mmol/L (21-32) Anion Gap 8 (6-14) Blood Urea Nitrogen 8 mg/dL (7-20) Creatinine 0.9 mg/dL (0.6-1.0) Estimated GFR (Cockcroft-Gault) 65.2 BUN/Creatinine Ratio 9 (6-20) Glucose Level 122 mg/dL (70-99) Calcium Level 8.8 mg/dL (8.5-10.1) Total Bilirubin 2.1 mg/dL (0.2-1.0) Direct Bilirubin 1.0 mg/dL (0.0-0.2) Aspartate Amino Transf (AST/SGOT) 63 U/L (15-37) Alanine Aminotransferase (ALT/SGPT) 163 U/L (14-59) Alkaline Phosphatase 157 U/L (46-116) Total Protein 8.0 g/dL (6.4-8.2) Albumin 3.4 g/dL (3.4-5.0) Albumin/Globulin Ratio 0.7 (1.0-1.7) Lipase 239 U/L (73-393) Assessment/Plan Assessment/Plan Abd pain- s/p aleksandra with bile leak, most likely duct of luschka with low volume Plan ERCP with possible stent placement in am . Risks and benefitrs discussed with patient who is willing to proceed. IR consult for possible BRANDAN drain placement Full note dictated AJAY STRAUSS MD Dec 17, 2018 18:55
[2018-12-17 19:00] VITALS: BP 118/64
--- NOTE | 2018-12-17 19:00 | NUR ---
Dr. Kennedy here to see pt. Stated she could wait for procedures until tomorrow. Pt. notified and will get consents ready for pt. to sign.
[2018-12-17 22:55] VITALS: BP 130/73
--- NOTE | 2018-12-17 23:05 | CONS ---
DATE OF CONSULTATION: REASON FOR CONSULTATION: Bile leak. REFERRING PHYSICIAN: Dr. Perez. HISTORY OF PRESENT ILLNESS: The patient is a 53-year-old [place] female with past medical history significant for diverticulosis and recent cholecystectomy, has had persistent pain postoperatively. Subsequently, was found to have a bile leak on imaging studies over the past 5 days. The patient's intake has been minimal. She has not had any bowel movements recently, but is able to lay flat and is breathing comfortably presently. PAST MEDICAL HISTORY: Status post laparoscopic cholecystectomy, diverticulosis. ALLERGIES: None. MEDICATIONS: Include ketorolac, Dilaudid, morphine. SOCIAL HISTORY: She is . Does not drink or smoke. FAMILY HISTORY: Noncontributory. REVIEW OF SYSTEMS: Per records. PHYSICAL EXAMINATION: GENERAL: Reveals a well-nourished, well-developed female who is alert, cooperative, is in mild distress. VITAL SIGNS: Room air sats 98%, respiratory rate is 16, blood pressure is 130/70. HEENT: Normocephalic, atraumatic head. Pupils and extraocular muscles are not tested. Sclerae anicteric. NECK: Supple. LUNGS: Clear. CARDIOVASCULAR: Reveals an S1, S2 without S3, S4 or appreciable murmur. ABDOMEN: Right upper quadrant and right lower to deep palpation are noted with the laparoscopic incisions, which are intact. EXTREMITIES: Reveals no cyanosis, clubbing or edema. LABORATORY STUDIES: Hemoglobin 13.2, hematocrit 38.5, white count 7.8, platelet count 261,000. Sodium is 133, potassium 3.4, chloride 97, BUN 8, creatinine 0.9, glucose 122, calcium 8.8, total bilirubin 2.1, direct bilirubin 1.0, AST of 63, ALT 163, alkaline phosphatase 157, total protein is 5.0, albumin 3.4, lipase is 239. IMPRESSION: Abdominal pain, status post cholecystectomy without documented bile leak on HIDA scan. We will recommend ERCP with stent placement in the a.m., most likely is a duct of Luschka leak in view of the minimal volume of fluid, which is present at this time compared to cystic duct obstruction. The patient is willing to proceed. IR consultation for possible BRANDAN drain placement may be needed as well pending the patient's clinical course and findings on ERCP tomorrow. AJAY STRAUSS MD DR: ODETTE/marissa JOB#: [id number] / [id number] DEIRDRE Hwang MD, THOMAS MD
[2018-12-18] VITALS (13 sets, daily range): BP systolic 120–150; BP diastolic 70–88
[2018-12-18] MEDS: HYDROmorphone 2 MG/ML VIAL IV PRN ×6 (02:33→21:03)
[2018-12-18] MEDS: KETOROLAC 15 MG/ML VIAL. IV SCH ×4 (05:23→23:55)
[2018-12-18] MEDS ORDERED: IOHEXOL 300 MG/ML 100ML VIAL. ONE (07:48)
[2018-12-18] MEDS ORDERED: LIDOCAINE 2% PF 5 ML VIAL. ONE (08:04)
[2018-12-18] MEDS ORDERED: fentaNYL PF VIAL 100 MCG/2 ML VIAL ONE (08:04)
[2018-12-18] MEDS ORDERED: PROPOFOL 20 ML IV ONE (08:04)
[2018-12-18] MEDS ORDERED: SUCCINYLCHOLINE 200 MG/10 ML VIAL. ONE (08:04)
--- NOTE | 2018-12-18 08:17 | PDOC ---
Provider Note Provider Note IR NOTE CT and Hida scan reviewed. Small bile leak seen on hida. Scant fluid in around dome of liver. No significant Gb fossa collection. NO drainable collection in the RUQ is present on most recent imaging. Slightly more prominent, non-loculated free fluid is present in the pelvis. Bile appears to track into the pelvis on hida scan . Mild bili elevation. Normal WBC count. Patient afebrile. Unsure of clinical benefit of pelvic drain at this time. Will follow results of ERCP planned for today. Laboratory Tests Test 12/17/18 12:15 12/17/18 14:15 White Blood Count 7.8 x10^3/uL Red Blood Count 4.17 x10^6/uL Hemoglobin 13.2 g/dL Hematocrit 38.5 % Mean Corpuscular Volume 92 fL Mean Corpuscular Hemoglobin 32 pg Mean Corpuscular Hemoglobin Concent 34 g/dL Red Cell Distribution Width 13.1 % Platelet Count 261 x10^3/uL Neutrophils (%) (Auto) 83 % Lymphocytes (%) (Auto) 9 % Monocytes (%) (Auto) 7 % Eosinophils (%) (Auto) 1 % Basophils (%) (Auto) 0 % Neutrophils # (Auto) 6.5 x10^3/uL Lymphocytes # (Auto) 0.7 x10^3/uL Monocytes # (Auto) 0.6 x10^3/uL Eosinophils # (Auto) 0.1 x10^3/uL Basophils # (Auto) 0.0 x10^3/uL Sodium Level 133 mmol/L Potassium Level 3.4 mmol/L Chloride Level 97 mmol/L Carbon Dioxide Level 28 mmol/L Anion Gap 8 Blood Urea Nitrogen 8 mg/dL Creatinine 0.9 mg/dL Estimated GFR (Cockcroft-Gault) 65.2 BUN/Creatinine Ratio 9 Glucose Level 122 mg/dL Calcium Level 8.8 mg/dL Total Bilirubin 2.1 mg/dL Direct Bilirubin 1.0 mg/dL Aspartate Amino Transf (AST/SGOT) 63 U/L Alanine Aminotransferase (ALT/SGPT) 163 U/L Alkaline Phosphatase 157 U/L Total Protein 8.0 g/dL Albumin 3.4 g/dL Albumin/Globulin Ratio 0.7 Lipase 239 U/L FENG EL MD Dec 18, 2018 08:17
--- NOTE | 2018-12-18 08:29 | PDOC ---
SURGICAL PROGRESS NOTE Subjective Patient doing much better this morning less pain Vital Signs Vital Signs Date Time Temp Pulse Resp B/P (MAP) Pulse Ox O2 Delivery O2 Flow Rate FiO2 12/18/18 08:24 98.0 103 20 97 98.0 12/18/18 07:00 129/76 (93) Room Air I&O Intake and Output 12/18/18 06:59 Intake Total 1000 ml Balance 1000 ml Intake Oral 0 ml IV Total 1000 ml # Voids 1 PATIENT HAS A MCDERMOTT: No General: Alert, Oriented X3, Cooperative, mild distress Abdomen: Normal bowel sounds, Soft, Other (mildly tender to palpation right upper quadrant was clean dry and intact) Labs Laboratory Tests Test 12/17/18 12:15 12/17/18 14:15 White Blood Count 7.8 x10^3/uL (4.0-11.0) Red Blood Count 4.17 x10^6/uL (3.50-5.40) Hemoglobin 13.2 g/dL (12.0-15.5) Hematocrit 38.5 % (36.0-47.0) Mean Corpuscular Volume 92 fL (79-100) Mean Corpuscular Hemoglobin 32 pg (25-35) Mean Corpuscular Hemoglobin Concent 34 g/dL (31-37) Red Cell Distribution Width 13.1 % (11.5-14.5) Platelet Count 261 x10^3/uL (140-400) Neutrophils (%) (Auto) 83 % (31-73) Lymphocytes (%) (Auto) 9 % (24-48) Monocytes (%) (Auto) 7 % (0-9) Eosinophils (%) (Auto) 1 % (0-3) Basophils (%) (Auto) 0 % (0-3) Neutrophils # (Auto) 6.5 x10^3/uL (1.8-7.7) Lymphocytes # (Auto) 0.7 x10^3/uL (1.0-4.8) Monocytes # (Auto) 0.6 x10^3/uL (0.0-1.1) Eosinophils # (Auto) 0.1 x10^3/uL (0.0-0.7) Basophils # (Auto) 0.0 x10^3/uL (0.0-0.2) Sodium Level 133 mmol/L (136-145) Potassium Level 3.4 mmol/L (3.5-5.1) Chloride Level 97 mmol/L (98-107) Carbon Dioxide Level 28 mmol/L (21-32) Anion Gap 8 (6-14) Blood Urea Nitrogen 8 mg/dL (7-20) Creatinine 0.9 mg/dL (0.6-1.0) Estimated GFR (Cockcroft-Gault) 65.2 BUN/Creatinine Ratio 9 (6-20) Glucose Level 122 mg/dL (70-99) Calcium Level 8.8 mg/dL (8.5-10.1) Total Bilirubin 2.1 mg/dL (0.2-1.0) Direct Bilirubin 1.0 mg/dL (0.0-0.2) Aspartate Amino Transf (AST/SGOT) 63 U/L (15-37) Alanine Aminotransferase (ALT/SGPT) 163 U/L (14-59) Alkaline Phosphatase 157 U/L (46-116) Total Protein 8.0 g/dL (6.4-8.2) Albumin 3.4 g/dL (3.4-5.0) Albumin/Globulin Ratio 0.7 (1.0-1.7) Lipase 239 U/L (73-393) Laboratory Tests Test 12/17/18 12:15 12/17/18 14:15 White Blood Count 7.8 x10^3/uL (4.0-11.0) Red Blood Count 4.17 x10^6/uL (3.50-5.40) Hemoglobin 13.2 g/dL (12.0-15.5) Hematocrit 38.5 % (36.0-47.0) Mean Corpuscular Volume 92 fL (79-100) Mean Corpuscular Hemoglobin 32 pg (25-35) Mean Corpuscular Hemoglobin Concent 34 g/dL (31-37) Red Cell Distribution Width 13.1 % (11.5-14.5) Platelet Count 261 x10^3/uL (140-400) Neutrophils (%) (Auto) 83 % (31-73) Lymphocytes (%) (Auto) 9 % (24-48) Monocytes (%) (Auto) 7 % (0-9) Eosinophils (%) (Auto) 1 % (0-3) Basophils (%) (Auto) 0 % (0-3) Neutrophils # (Auto) 6.5 x10^3/uL (1.8-7.7) Lymphocytes # (Auto) 0.7 x10^3/uL (1.0-4.8) Monocytes # (Auto) 0.6 x10^3/uL (0.0-1.1) Eosinophils # (Auto) 0.1 x10^3/uL (0.0-0.7) Basophils # (Auto) 0.0 x10^3/uL (0.0-0.2) Sodium Level 133 mmol/L (136-145) Potassium Level 3.4 mmol/L (3.5-5.1) Chloride Level 97 mmol/L (98-107) Carbon Dioxide Level 28 mmol/L (21-32) Anion Gap 8 (6-14) Blood Urea Nitrogen 8 mg/dL (7-20) Creatinine 0.9 mg/dL (0.6-1.0) Estimated GFR (Cockcroft-Gault) 65.2 BUN/Creatinine Ratio 9 (6-20) Glucose Level 122 mg/dL (70-99) Calcium Level 8.8 mg/dL (8.5-10.1) Total Bilirubin 2.1 mg/dL (0.2-1.0) Direct Bilirubin 1.0 mg/dL (0.0-0.2) Aspartate Amino Transf (AST/SGOT) 63 U/L (15-37) Alanine Aminotransferase (ALT/SGPT) 163 U/L (14-59) Alkaline Phosphatase 157 U/L (46-116) Total Protein 8.0 g/dL (6.4-8.2) Albumin 3.4 g/dL (3.4-5.0) Albumin/Globulin Ratio 0.7 (1.0-1.7) Lipase 239 U/L (73-393) Assessment/Plan Status post lap scopic cholecystectomy with likely duct of Luschka bile leak Scheduled for ERCP today we'll follow up on results Appreciate GI and IR's input RENAE PAYNE MD Dec 18, 2018 08:29
[2018-12-18] MEDS ORDERED: IV RINGERS,LACTATED 1000ML 1,000 ML IV ONE (08:45)
[2018-12-18] MEDS ORDERED: DEXAMETHASONE SOD PHOS 20 MG/5 ML VIAL. ONE (09:00)
[2018-12-18] MEDS ORDERED: PHENYLEPHRINE in 0.9% NACL PF 1 MG/10 ML SYRINGE. IV ONE (09:00)
[2018-12-18] MEDS ORDERED: IOHEXOL 300 MG/ML 50 ML VIAL. INT CAT ONE (09:32)
[2018-12-18] MEDS ORDERED: ONDANSETRON PF 4 MG/2 ML VIAL. ONE (09:46)
--- NOTE | 2018-12-18 10:01 | PDOC4 ---
Operative Note Operative Note ERCP Meds Propofol per anesthesia Pre-op dx bile leak s/p aleksandra post- op dx normal pancreatic duct nonvisualization of CBD Plan IR consult and/or transfer to [facility] for stenting AJAY STRAUSS MD Dec 18, 2018 10:01
[2018-12-18] MEDS: MORPHINE SULFATE 2 MG/ML VIAL. IV PRN ×3 (10:38→22:53)
[2018-12-18] MEDS: IV NORMAL SALINE 1000ML BAG 1,000 ML IV SCH ×2 (11:44→18:17)
--- NOTE | 2018-12-18 11:54 | NUR ---
SS following for discharge planning. SS reviewed pt chart. Pt is from home with spouse and is currently on room air. No discharge needs noted at this time. SS will continue to follow for discharge planning.
[2018-12-18] MEDS: ONDANSETRON PF 4 MG/2 ML VIAL. IV PRN ×2 (11:55→18:16)
[2018-12-18 13:04] LABS: ALBUMIN 2.7 g/dL (3.4-5.0); DIRECT BILIRUBIN 1.1 mg/dL (0.0-0.2); TOTAL BILIRUBIN 1.9 mg/dL (0.2-1.0); TOTAL PROTEIN 6.4 g/dL (6.4-8.2)
--- NOTE | 2018-12-18 16:33 | RAD ---
C-arm fluoroscopy with fluoroscopic spot view Clinical indications: Bile leak. Status post cholecystectomy. Fluoroscopy for ERCP. Total fluoroscopic time: 2.17 minutes. Total fluoroscopic spot views: 1. IMPRESSION: Fluoroscopic spot view demonstrates cannulization and retrograde opacification of the main pancreatic duct without stricture or stone. No images of the extrahepatic biliary tree are presented. Apparently the common bile duct could not be cannulated. See operative report for full details. Electronically signed by: Lacho Calzada MD (12/18/2018 4:30 PM) [id number]
[2018-12-18] MEDS: SIMETHICONE 80 MG TAB.CHEW PO PRN ×2 (18:08→21:02)
[2018-12-19] MEDS: ONDANSETRON PF 4 MG/2 ML VIAL. IV PRN ×3 (00:58→20:51)
[2018-12-19] MEDS: HYDROmorphone 2 MG/ML VIAL IV PRN ×10 (00:58→23:04)
[2018-12-19 03:00] VITALS: BP 141/82
[2018-12-19] MEDS: IV NORMAL SALINE 1000ML BAG 1,000 ML IV SCH ×3 (04:51→23:07)
[2018-12-19] MEDS: KETOROLAC 15 MG/ML VIAL. IV SCH ×2 (05:48→11:54)
[2018-12-19 07:00] VITALS: BP 124/75
[2018-12-19 07:35] LABS: BASO % 0 % (0-3); EOS % 0 % (0-3); HEMATOCRIT 37.5 % (36.0-47.0); HEMOGLOBIN 12.8 g/dL (12.0-15.5); LYMPH # 0.5 x10^3/uL (1.0-4.8); LYMPH % 7 % (24-48); MEAN CORPUSCULAR HEMOGLOBIN 32 pg (25-35); MEAN CORPUSCULAR HGB CONC 34 g/dL (31-37); MEAN CORPUSCULAR VOLUME 93 fL (79-100); MONO # 0.6 x10^3/uL (0.0-1.1); MONO % 8 % (0-9); NEUT # 6.3 x10^3/uL (1.8-7.7); NEUT % 85 % (31-73); PLATELET COUNT 326 x10^3/uL (140-400); RED BLOOD COUNT 4.01 x10^6/uL (3.50-5.40); RED CELL DISTRIBUTION WIDTH 13.4 % (11.5-14.5); WHITE BLOOD COUNT 7.4 x10^3/uL (4.0-11.0)
[2018-12-19 08:06] LABS: ALBUMIN 2.5 g/dL (3.4-5.0); ALBUMIN/GLOBULIN RATIO 0.6 (1.0-1.7); CALCIUM 8.5 mg/dL (8.5-10.1); CREATININE 0.8 mg/dL (0.6-1.0); DIRECT BILIRUBIN 0.8 mg/dL (0.0-0.2); GFR 74.7; TOTAL BILIRUBIN 1.4 mg/dL (0.2-1.0); TOTAL PROTEIN 6.8 g/dL (6.4-8.2)
--- NOTE | 2018-12-19 08:57 | PDOC ---
MELISSA RAND[facility]PH [employer] 12/19/18 0857: SURGICAL PROGRESS NOTE Subjective abd pain, upper abdomen worried about constipation Vital Signs Vital Signs Date Time Temp Pulse Resp B/P (MAP) Pulse Ox O2 Delivery O2 Flow Rate FiO2 12/19/18 08:49 Room Air 12/19/18 07:00 98.1 104 16 124/75 (91) 93 98.1 12/18/18 10:10 5 I&O Intake and Output 12/19/18 07:00 Intake Total 1600 ml Balance 1600 ml Intake Oral 0 ml IV Total 1600 ml # Voids 4 General: Alert, Cooperative Abdomen: Soft, Other (TTP upper abdomen) Labs Laboratory Tests Test 12/17/18 12:15 12/17/18 14:15 12/18/18 12:35 12/19/18 06:04 White Blood Count 7.8 x10^3/uL (4.0-11.0) 7.4 x10^3/uL (4.0-11.0) Red Blood Count 4.17 x10^6/uL (3.50-5.40) 4.01 x10^6/uL (3.50-5.40) Hemoglobin 13.2 g/dL (12.0-15.5) 12.8 g/dL (12.0-15.5) Hematocrit 38.5 % (36.0-47.0) 37.5 % (36.0-47.0) Mean Corpuscular Volume 92 fL (79-100) 93 fL (79-100) Mean Corpuscular Hemoglobin 32 pg (25-35) 32 pg (25-35) Mean Corpuscular Hemoglobin Concent 34 g/dL (31-37) 34 g/dL (31-37) Red Cell Distribution Width 13.1 % (11.5-14.5) 13.4 % (11.5-14.5) Platelet Count 261 x10^3/uL (140-400) 326 x10^3/uL (140-400) Neutrophils (%) (Auto) 83 % (31-73) 85 % (31-73) Lymphocytes (%) (Auto) 9 % (24-48) 7 % (24-48) Monocytes (%) (Auto) 7 % (0-9) 8 % (0-9) Eosinophils (%) (Auto) 1 % (0-3) 0 % (0-3) Basophils (%) (Auto) 0 % (0-3) 0 % (0-3) Neutrophils # (Auto) 6.5 x10^3/uL (1.8-7.7) 6.3 x10^3/uL (1.8-7.7) Lymphocytes # (Auto) 0.7 x10^3/uL (1.0-4.8) 0.5 x10^3/uL (1.0-4.8) Monocytes # (Auto) 0.6 x10^3/uL (0.0-1.1) 0.6 x10^3/uL (0.0-1.1) Eosinophils # (Auto) 0.1 x10^3/uL (0.0-0.7) 0.0 x10^3/uL (0.0-0.7) Basophils # (Auto) 0.0 x10^3/uL (0.0-0.2) 0.0 x10^3/uL (0.0-0.2) Sodium Level 133 mmol/L (136-145) 141 mmol/L (136-145) Potassium Level 3.4 mmol/L (3.5-5.1) 4.0 mmol/L (3.5-5.1) Chloride Level 97 mmol/L (98-107) 106 mmol/L (98-107) Carbon Dioxide Level 28 mmol/L (21-32) 24 mmol/L (21-32) Anion Gap 8 (6-14) 11 (6-14) Blood Urea Nitrogen 8 mg/dL (7-20) 18 mg/dL (7-20) Creatinine 0.9 mg/dL (0.6-1.0) 0.8 mg/dL (0.6-1.0) Estimated GFR (Cockcroft-Gault) 65.2 74.7 BUN/Creatinine Ratio 9 (6-20) 23 (6-20) Glucose Level 122 mg/dL (70-99) 135 mg/dL (70-99) Calcium Level 8.8 mg/dL (8.5-10.1) 8.5 mg/dL (8.5-10.1) Total Bilirubin 2.1 mg/dL (0.2-1.0) 1.9 mg/dL (0.2-1.0) 1.4 mg/dL (0.2-1.0) Direct Bilirubin 1.0 mg/dL (0.0-0.2) 1.1 mg/dL (0.0-0.2) 0.8 mg/dL (0.0-0.2) Aspartate Amino Transf (AST/SGOT) 63 U/L (15-37) 36 U/L (15-37) 26 U/L (15-37) Alanine Aminotransferase (ALT/SGPT) 163 U/L (14-59) 104 U/L (14-59) 89 U/L (14-59) Alkaline Phosphatase 157 U/L (46-116) 162 U/L (46-116) 153 U/L (46-116) Total Protein 8.0 g/dL (6.4-8.2) 6.4 g/dL (6.4-8.2) 6.8 g/dL (6.4-8.2) Albumin 3.4 g/dL (3.4-5.0) 2.7 g/dL (3.4-5.0) 2.5 g/dL (3.4-5.0) Albumin/Globulin Ratio 0.7 (1.0-1.7) 0.6 (1.0-1.7) Lipase 239 U/L (73-393) 4491 U/L (73-393) Amylase Level 407 U/L (25-115) Laboratory Tests Test 12/18/18 12:35 12/19/18 06:04 Total Bilirubin 1.9 mg/dL (0.2-1.0) 1.4 mg/dL (0.2-1.0) Direct Bilirubin 1.1 mg/dL (0.0-0.2) 0.8 mg/dL (0.0-0.2) Aspartate Amino Transf (AST/SGOT) 36 U/L (15-37) 26 U/L (15-37) Alanine Aminotransferase (ALT/SGPT) 104 U/L (14-59) 89 U/L (14-59) Alkaline Phosphatase 162 U/L (46-116) 153 U/L (46-116) Total Protein 6.4 g/dL (6.4-8.2) 6.8 g/dL (6.4-8.2) Albumin 2.7 g/dL (3.4-5.0) 2.5 g/dL (3.4-5.0) White Blood Count 7.4 x10^3/uL (4.0-11.0) Red Blood Count 4.01 x10^6/uL (3.50-5.40) Hemoglobin 12.8 g/dL (12.0-15.5) Hematocrit 37.5 % (36.0-47.0) Mean Corpuscular Volume 93 fL (79-100) Mean Corpuscular Hemoglobin 32 pg (25-35) Mean Corpuscular Hemoglobin Concent 34 g/dL (31-37) Red Cell Distribution Width 13.4 % (11.5-14.5) Platelet Count 326 x10^3/uL (140-400) Neutrophils (%) (Auto) 85 % (31-73) Lymphocytes (%) (Auto) 7 % (24-48) Monocytes (%) (Auto) 8 % (0-9) Eosinophils (%) (Auto) 0 % (0-3) Basophils (%) (Auto) 0 % (0-3) Neutrophils # (Auto) 6.3 x10^3/uL (1.8-7.7) Lymphocytes # (Auto) 0.5 x10^3/uL (1.0-4.8) Monocytes # (Auto) 0.6 x10^3/uL (0.0-1.1) Eosinophils # (Auto) 0.0 x10^3/uL (0.0-0.7) Basophils # (Auto) 0.0 x10^3/uL (0.0-0.2) Sodium Level 141 mmol/L (136-145) Potassium Level 4.0 mmol/L (3.5-5.1) Chloride Level 106 mmol/L (98-107) Carbon Dioxide Level 24 mmol/L (21-32) Anion Gap 11 (6-14) Blood Urea Nitrogen 18 mg/dL (7-20) Creatinine 0.8 mg/dL (0.6-1.0) Estimated GFR (Cockcroft-Gault) 74.7 BUN/Creatinine Ratio 23 (6-20) Glucose Level 135 mg/dL (70-99) Calcium Level 8.5 mg/dL (8.5-10.1) Albumin/Globulin Ratio 0.6 (1.0-1.7) Amylase Level 407 U/L (25-115) Lipase 4491 U/L (73-393) Assessment/Plan lfts improved post procedure pancreatitis--bowel rest, hydration, pain control RENAE PAYNE MD 12/19/18 1138: SURGICAL PROGRESS NOTE Assessment/Plan Patient seen and examined by me she complains of some epigastric abdominal pain no nausea no vomiting. Abdomen is soft nondistended and mildly tender to palpation ecchymosis in the right lower quadrant is improving. Labs show improved LFTs but developed pancreatitis after ERCP we'll continue bowel rest w ith only clear liquids today reevaluate enzymes in the a.m.. Agree with Maulik assessment and plan MELISSA RANDOLPH APRN Dec 19, 2018 08:57 RENAE PAYNE MD Dec 19, 2018 11:38
[2018-12-19 11:00] VITALS: BP 116/67
--- NOTE | 2018-12-19 13:08 | PDOC ---
Subjective: Subjective: Upper abd pain - a little better compared to yesterday after ERCP. Concerned that she hasn't stooled. Taking some ice chips. Objective: Objective: D/w Anahy earlier. IR note - NO drainable collection in the RUQ is present on most recent imaging, bile appears to track into the pelvis on hida scan, unsure of clinical benefit of pelvic drain at this time. Vital Signs: Vital Signs Date Time Temp Pulse Resp B/P (MAP) Pulse Ox O2 Delivery O2 Flow Rate FiO2 12/19/18 11:55 Room Air 12/19/18 11:00 98.0 99 18 116/67 (83) 96 98.0 12/18/18 10:10 5 Labs: Laboratory Tests Test 12/19/18 06:04 White Blood Count 7.4 x10^3/uL Red Blood Count 4.01 x10^6/uL Hemoglobin 12.8 g/dL Hematocrit 37.5 % Mean Corpuscular Volume 93 fL Mean Corpuscular Hemoglobin 32 pg Mean Corpuscular Hemoglobin Concent 34 g/dL Red Cell Distribution Width 13.4 % Platelet Count 326 x10^3/uL Neutrophils (%) (Auto) 85 % Lymphocytes (%) (Auto) 7 % Monocytes (%) (Auto) 8 % Eosinophils (%) (Auto) 0 % Basophils (%) (Auto) 0 % Neutrophils # (Auto) 6.3 x10^3/uL Lymphocytes # (Auto) 0.5 x10^3/uL Monocytes # (Auto) 0.6 x10^3/uL Eosinophils # (Auto) 0.0 x10^3/uL Basophils # (Auto) 0.0 x10^3/uL Sodium Level 141 mmol/L Potassium Level 4.0 mmol/L Chloride Level 106 mmol/L Carbon Dioxide Level 24 mmol/L Anion Gap 11 Blood Urea Nitrogen 18 mg/dL Creatinine 0.8 mg/dL Estimated GFR (Cockcroft-Gault) 74.7 BUN/Creatinine Ratio 23 Glucose Level 135 mg/dL Calcium Level 8.5 mg/dL Total Bilirubin 1.4 mg/dL Direct Bilirubin 0.8 mg/dL Aspartate Amino Transf (AST/SGOT) 26 U/L Alanine Aminotransferase (ALT/SGPT) 89 U/L Alkaline Phosphatase 153 U/L Total Protein 6.8 g/dL Albumin 2.5 g/dL Albumin/Globulin Ratio 0.6 Amylase Level 407 U/L Lipase 4491 U/L Imaging: ERCP 12/18 Pre-op dx bile leak s/p aleksandra post- op dx normal pancreatic duct nonvisualization of CBD PE: GEN: NAD LUNGS: CTAB HEART: RRR ABD: quiet BS, soft, epigastric discomfort NEURO/PSYCH: A & O �3 A/P: Bile s/p ERCP - unable to stent Pancreatitis -- LFTs better today - continue per surgery re: bile leak. Supportive care for pancreatitis - taking ice chips but has orders for clears as well. I assured her we would address constipation when taking adequate PO - has Miralax ordered currently, could also consider Relistor, Amitiza, etc. [address] Dec 19, 2018 13:08
[2018-12-19 15:00] VITALS: BP 124/64
[2018-12-19] MEDS: SIMETHICONE 80 MG TAB.CHEW PO PRN (17:24)
[2018-12-19] MEDS ORDERED: POLYETHYLENE GLYCOL 3350 17 GM PACKET. PO ONE (18:00)
[2018-12-19 19:00] VITALS: BP 157/74
[2018-12-19] MEDS: MORPHINE SULFATE 2 MG/ML VIAL. IV PRN (22:28)
[2018-12-19 23:00] VITALS: BP 143/79
[2018-12-19 23:17] LABS: BILIRUBIN,URINE SMALL (NEG); CLARITY,URINE CLEAR; COLOR,URINE AMBER; NITRITE,URINE NEGATIVE (NEG); PROTEIN,URINE 30 mg/dL (NEG-TRACE)
[2018-12-19 23:23] LABS: BACTERIA,URINE 0 /HPF (0-FEW); RBC,URINE OCC /HPF (0-2); SQUAMOUS EPITHELIAL CELL,UR OCC /LPF; WBC,URINE OCC /HPF (0-4)
[2018-12-20] VITALS (7 sets, daily range): BP systolic 131–144; BP diastolic 73–90
--- NOTE | 2018-12-20 00:30 | NUR ---
patient unable to void, bladder scanned revealed 520ml , straight cath done and obtained 500 ml fady urine, pt stated relieved.will continue to monitor and give support.
[2018-12-20] MEDS: HYDROmorphone 2 MG/ML VIAL IV PRN ×3 (01:13→14:14)
[2018-12-20] MEDS: ONDANSETRON PF 4 MG/2 ML VIAL. IV PRN ×6 (01:13→23:15)
[2018-12-20 07:42] LABS: ALBUMIN 2.2 g/dL (3.4-5.0); DIRECT BILIRUBIN 0.8 mg/dL (0.0-0.2); TOTAL BILIRUBIN 1.3 mg/dL (0.2-1.0); TOTAL PROTEIN 5.8 g/dL (6.4-8.2)
[2018-12-20] MEDS: MORPHINE SULFATE 2 MG/ML VIAL. IV PRN ×6 (07:45→23:16)
[2018-12-20] MEDS: POLYETHYLENE GLYCOL 3350 17 GM PACKET. PO SCH (07:45)
[2018-12-20] MEDS: IV NORMAL SALINE 1000ML BAG 1,000 ML IV SCH (07:49)
--- NOTE | 2018-12-20 11:09 | PDOC ---
SURGICAL PROGRESS NOTE Subjective Patient complains of difficulty urinating and feeling more bloated Vital Signs Vital Signs Date Time Temp Pulse Resp B/P (MAP) Pulse Ox O2 Delivery O2 Flow Rate FiO2 12/20/18 09:12 Room Air 12/20/18 07:00 97.5 119 18 143/81 (101) 93 97.5 12/20/18 04:27 5.0 I&O Intake and Output 12/20/18 07:00 Intake Total 1200 ml Balance 1200 ml IV Total 1200 ml # Voids 3 PATIENT HAS A MCDERMOTT: No General: Alert, Oriented X3, Cooperative, mild distress Abdomen: Normal bowel sounds, Soft, Other (diffusely tender and distended wounds clean dry and intact. Labial swelling on the right side) Labs Laboratory Tests Test 12/18/18 12:35 12/19/18 06:04 12/19/18 22:10 12/20/18 06:35 Total Bilirubin 1.9 mg/dL (0.2-1.0) 1.4 mg/dL (0.2-1.0) 1.3 mg/dL (0.2-1.0) Direct Bilirubin 1.1 mg/dL (0.0-0.2) 0.8 mg/dL (0.0-0.2) 0.8 mg/dL (0.0-0.2) Aspartate Amino Transf (AST/SGOT) 36 U/L (15-37) 26 U/L (15-37) 21 U/L (15-37) Alanine Aminotransferase (ALT/SGPT) 104 U/L (14-59) 89 U/L (14-59) 57 U/L (14-59) Alkaline Phosphatase 162 U/L (46-116) 153 U/L (46-116) 137 U/L (46-116) Total Protein 6.4 g/dL (6.4-8.2) 6.8 g/dL (6.4-8.2) 5.8 g/dL (6.4-8.2) Albumin 2.7 g/dL (3.4-5.0) 2.5 g/dL (3.4-5.0) 2.2 g/dL (3.4-5.0) White Blood Count 7.4 x10^3/uL (4.0-11.0) Red Blood Count 4.01 x10^6/uL (3.50-5.40) Hemoglobin 12.8 g/dL (12.0-15.5) Hematocrit 37.5 % (36.0-47.0) Mean Corpuscular Volume 93 fL (79-100) Mean Corpuscular Hemoglobin 32 pg (25-35) Mean Corpuscular Hemoglobin Concent 34 g/dL (31-37) Red Cell Distribution Width 13.4 % (11.5-14.5) Platelet Count 326 x10^3/uL (140-400) Neutrophils (%) (Auto) 85 % (31-73) Lymphocytes (%) (Auto) 7 % (24-48) Monocytes (%) (Auto) 8 % (0-9) Eosinophils (%) (Auto) 0 % (0-3) Basophils (%) (Auto) 0 % (0-3) Neutrophils # (Auto) 6.3 x10^3/uL (1.8-7.7) Lymphocytes # (Auto) 0.5 x10^3/uL (1.0-4.8) Monocytes # (Auto) 0.6 x10^3/uL (0.0-1.1) Eosinophils # (Auto) 0.0 x10^3/uL (0.0-0.7) Basophils # (Auto) 0.0 x10^3/uL (0.0-0.2) Sodium Level 141 mmol/L (136-145) Potassium Level 4.0 mmol/L (3.5-5.1) Chloride Level 106 mmol/L (98-107) Carbon Dioxide Level 24 mmol/L (21-32) Anion Gap 11 (6-14) Blood Urea Nitrogen 18 mg/dL (7-20) Creatinine 0.8 mg/dL (0.6-1.0) Estimated GFR (Cockcroft-Gault) 74.7 BUN/Creatinine Ratio 23 (6-20) Glucose Level 135 mg/dL (70-99) Calcium Level 8.5 mg/dL (8.5-10.1) Albumin/Globulin Ratio 0.6 (1.0-1.7) Amylase Level 407 U/L (25-115) 201 U/L (25-115) Lipase 4491 U/L (73-393) Urine Collection Type Unknown Urine Color Samantha Urine Clarity Clear Urine pH 6.0 Urine Specific [place] 1.025 Urine Protein 30 mg/dL (NEG-TRACE) Urine Glucose (UA) Negative mg/dL (NEG) Urine Ketones (Stick) 15 mg/dL (NEG) Urine Blood Negative (NEG) Urine Nitrite Negative (NEG) Urine Bilirubin Small (NEG) Urine Urobilinogen Dipstick 1.0 mg/dL (0.2 mg/dL) Urine Leukocyte Esterase Negative (NEG) Urine RBC Occ /HPF (0-2) Urine WBC Occ /HPF (0-4) Urine Squamous Epithelial Cells Occ /LPF Urine Transitional Epithelial Cells Occ /LPF Urine Bacteria 0 /HPF (0-FEW) Urine Mucus Marked /LPF Laboratory Tests Test 12/19/18 22:10 12/20/18 06:35 Urine Collection Type Unknown Urine Color Samantha Urine Clarity Clear Urine pH 6.0 Urine Specific [place] 1.025 Urine Protein 30 mg/dL (NEG-TRACE) Urine Glucose (UA) Negative mg/dL (NEG) Urine Ketones (Stick) 15 mg/dL (NEG) Urine Blood Negative (NEG) Urine Nitrite Negative (NEG) Urine Bilirubin Small (NEG) Urine Urobilinogen Dipstick 1.0 mg/dL (0.2 mg/dL) Urine Leukocyte Esterase Negative (NEG) Urine RBC Occ /HPF (0-2) Urine WBC Occ /HPF (0-4) Urine Squamous Epithelial Cells Occ /LPF Urine Transitional Epithelial Cells Occ /LPF Urine Bacteria 0 /HPF (0-FEW) Urine Mucus Marked /LPF Total Bilirubin 1.3 mg/dL (0.2-1.0) Direct Bilirubin 0.8 mg/dL (0.0-0.2) Aspartate Amino Transf (AST/SGOT) 21 U/L (15-37) Alanine Aminotransferase (ALT/SGPT) 57 U/L (14-59) Alkaline Phosphatase 137 U/L (46-116) Total Protein 5.8 g/dL (6.4-8.2) Albumin 2.2 g/dL (3.4-5.0) Amylase Level 201 U/L (25-115) Assessment/Plan Status post lap scopic cholecystectomy with bile leak appears to be ducts of L[place]chka leak. Improved LFTs status post attempted ERCP with postprocedural pancreatitis Will obtain repeat CT scan for possible drainage of fluid if it's increased Restrict diet nothing by mouth except for ice chips Mcdermott catheter for urinary retention RENAE PAYNE MD Dec 20, 2018 11:09
--- NOTE | 2018-12-20 11:14 | PDOC ---
Subjective: Subjective: Seen w/ Dr. Kennedy this morning. Difficulty urinating, more abd pain today. Objective: Objective: D/w nurse and Dr. Perez - plans for CT. Vital Signs: Vital Signs Date Time Temp Pulse Resp B/P (MAP) Pulse Ox O2 Delivery O2 Flow Rate FiO2 12/20/18 09:12 Room Air 12/20/18 07:00 97.5 119 18 143/81 (101) 93 97.5 12/20/18 04:27 5.0 Labs: Laboratory Tests Test 12/19/18 22:10 12/20/18 06:35 Urine Collection Type Unknown Urine Color Samantha Urine Clarity Clear Urine pH 6.0 Urine Specific [place] 1.025 Urine Protein 30 mg/dL Urine Glucose (UA) Negative mg/dL Urine Ketones (Stick) 15 mg/dL Urine Blood Negative Urine Nitrite Negative Urine Bilirubin Small Urine Urobilinogen Dipstick 1.0 mg/dL Urine Leukocyte Esterase Negative Urine RBC Occ /HPF Urine WBC Occ /HPF Urine Squamous Epithelial Cells Occ /LPF Urine Transitional Epithelial Cells Occ /LPF Urine Bacteria 0 /HPF Urine Mucus Marked /LPF Total Bilirubin 1.3 mg/dL Direct Bilirubin 0.8 mg/dL Aspartate Amino Transf (AST/SGOT) 21 U/L Alanine Aminotransferase (ALT/SGPT) 57 U/L Alkaline Phosphatase 137 U/L Total Protein 5.8 g/dL Albumin 2.2 g/dL Amylase Level 201 U/L PE: GEN: uncomfortable LUNGS: room air HEART: tachycardic ABD: tender to light touch, more distended NEURO/PSYCH: A & O �3 A/P: Bile s/p ERCP - unable to stent, initially no drainable fluid collection Pancreatitis -- Await interval CT - ?more fluid - ?IR drain vs transfer to for stenting. Discussed further w/ Dr. Kennedy and Kamilah/[facility] - will initiate communication w/ transfer center and Dr. Bahena's office. [address] Dec 20, 2018 11:14 AJAY KENNEDY MD Dec 20, 2018 12:28
[2018-12-20] MEDS ORDERED: IOHEXOL 240 MG/ML 50ML VIAL. PO ONE (11:30)
[2018-12-20] MEDS ORDERED: CONTRAST GIVEN. MC PRN (11:45)
--- NOTE | 2018-12-20 12:04 | NUR ---
SS following up with discharge planning. SS received phone contact from [place] in requesting information regarding [facility] transfer request. SS provided information. Dr. Kennedy initiated transfer request to for pt. SS faxed records to transfer team, ; fax [phone]. SS contacted radiology, [id number], and requested images be clouded to . Packet and hospital transfer from placed on chart. Pt's RN notified.
--- NOTE | 2018-12-20 13:00 | NUR ---
pt had episode of nausea at 1230, nausea medicine given, will continue to monitor.
[2018-12-20] MEDS: AMINO AC 3%/ELECTROLYTE/GLYCER 1,000 ML IV SCH (18:14)
--- NOTE | 2018-12-20 19:30 | RAD ---
PQRS Compliance Statement: One or more of the following individualized dose reduction techniques were utilized for this examination: 1. Automated exposure control 2. Adjustment of the mA and/or kV according to patient size 3. Use of iterative reconstruction technique CT ABD PEL W/ORAL CONTRST ONLY Clinical Indication: Evaluation of fluid collection from bile leak and pancreatitis. Comparison: CT abdomen and pelvis with contrast December 15, 2018. Technique: Helical CT imaging of the abdomen and pelvis is performed without IV contrast. Oral contrast is administered. Findings: There are new small bilateral pleural effusions. Consolidations in the bilateral lower lobes are probably atelectasis. Cardiac size normal. Cholecystectomy. Common bile duct is prominent but tapers distally, unchanged. Solid organs in the upper abdomen are stable. There is new moderate fluid in Morison's pouch. Right subphrenic free fluid has significantly increased, now considered moderate. There is new moderate free fluid in the left upper abdomen. Oral contrast is seen in the stomach and the duodenum. The distal stomach is not well distended accentuating the wall thickness. Oral contrast only reaches the proximal jejunum. The proximal small bowel is dilated. No evidence of small bowel obstruction. Distal colon diverticulosis. Distal colon is decompressed. Air mildly distends the transverse colon. The cecum is moderately dilated with stool, increased from prior study. No colon wall thickening is identified. There is large volume free fluid in the pelvis, increased from prior study. Urinary bladder contains Ferguson catheter is decompressed. Grade 1 anterolisthesis of L5 on S1. Degenerative spondylosis of L5/1 with irregularity of the S1 superior endplate. IMPRESSION: 1. Free fluid in the abdomen and pelvis is significantly increased from prior study, now moderate to severe. 2. There are new small bilateral pleural effusions. 3. Proximal and mid small bowel are dilated. A point of transition is not identified to suggest obstruction. Finding probably due to ileus. 4. There is moderate distention of the cecum with stool, increased from prior study. 5. Consolidations in the bilateral lower lobes are probably atelectasis. Electronically signed by: Freddy Cortes MD (12/20/2018 5:15 PM) [id number]
[2018-12-21 03:00] VITALS: BP 134/81
[2018-12-21] MEDS: MORPHINE SULFATE 2 MG/ML VIAL. IV PRN ×8 (04:06→23:30)
[2018-12-21] MEDS: ONDANSETRON PF 4 MG/2 ML VIAL. IV PRN ×6 (04:13→23:30)
[2018-12-21 05:41] LABS: BASO % 0 % (0-3); EOS % 0 % (0-3); HEMATOCRIT 40.5 % (36.0-47.0); HEMOGLOBIN 13.9 g/dL (12.0-15.5); LYMPH # 0.6 x10^3/uL (1.0-4.8); LYMPH % 22 % (24-48); MEAN CORPUSCULAR HEMOGLOBIN 32 pg (25-35); MEAN CORPUSCULAR HGB CONC 34 g/dL (31-37); MEAN CORPUSCULAR VOLUME 93 fL (79-100); MONO # 0.2 x10^3/uL (0.0-1.1); MONO % 7 % (0-9); NEUT # 1.9 x10^3/uL (1.8-7.7); NEUT % 70 % (31-73); PLATELET COUNT 386 x10^3/uL (140-400); RED BLOOD COUNT 4.36 x10^6/uL (3.50-5.40); RED CELL DISTRIBUTION WIDTH 13.6 % (11.5-14.5); WHITE BLOOD COUNT 2.7 x10^3/uL (4.0-11.0)
[2018-12-21] MEDS: AMINO AC 3%/ELECTROLYTE/GLYCER 1,000 ML IV SCH ×2 (05:47→16:15)
[2018-12-21 06:13] LABS: ALBUMIN 1.9 g/dL (3.4-5.0); ALBUMIN/GLOBULIN RATIO 0.5 (1.0-1.7); CALCIUM 8.5 mg/dL (8.5-10.1); CREATININE 0.7 mg/dL (0.6-1.0); GFR 87.2; TOTAL BILIRUBIN 1.3 mg/dL (0.2-1.0); TOTAL PROTEIN 5.4 g/dL (6.4-8.2)
[2018-12-21 07:00] VITALS: BP 136/92
[2018-12-21] MEDS: POLYETHYLENE GLYCOL 3350 17 GM PACKET. PO SCH (08:02)
--- NOTE | 2018-12-21 09:19 | PDOC ---
G I PROGRESS NOTE Reason for Follow-up Bile leak s/p aleksandra Subjective Pain improved s/p BRANDAN drain placement Physical Exam Lungs decreased BS CV S1 S2 Abd distended, BRANDAN drain in place, hypoactive BS Review of Relevant I have reviewed the following items betty (where applicable) has been applied. Labs Laboratory Tests Test 12/19/18 22:10 12/20/18 06:35 12/21/18 05:25 Urine Collection Type Unknown Urine Color Samantha Urine Clarity Clear Urine pH 6.0 Urine Specific [place] 1.025 Urine Protein 30 mg/dL (NEG-TRACE) Urine Glucose (UA) Negative mg/dL (NEG) Urine Ketones (Stick) 15 mg/dL (NEG) Urine Blood Negative (NEG) Urine Nitrite Negative (NEG) Urine Bilirubin Small (NEG) Urine Urobilinogen Dipstick 1.0 mg/dL (0.2 mg/dL) Urine Leukocyte Esterase Negative (NEG) Urine RBC Occ /HPF (0-2) Urine WBC Occ /HPF (0-4) Urine Squamous Epithelial Cells Occ /LPF Urine Transitional Epithelial Cells Occ /LPF Urine Bacteria 0 /HPF (0-FEW) Urine Mucus Marked /LPF Total Bilirubin 1.3 mg/dL (0.2-1.0) 1.3 mg/dL (0.2-1.0) Direct Bilirubin 0.8 mg/dL (0.0-0.2) Aspartate Amino Transf (AST/SGOT) 21 U/L (15-37) 18 U/L (15-37) Alanine Aminotransferase (ALT/SGPT) 57 U/L (14-59) 36 U/L (14-59) Alkaline Phosphatase 137 U/L (46-116) 109 U/L (46-116) Total Protein 5.8 g/dL (6.4-8.2) 5.4 g/dL (6.4-8.2) Albumin 2.2 g/dL (3.4-5.0) 1.9 g/dL (3.4-5.0) Amylase Level 201 U/L (25-115) 107 U/L (25-115) White Blood Count 2.7 x10^3/uL (4.0-11.0) Red Blood Count 4.36 x10^6/uL (3.50-5.40) Hemoglobin 13.9 g/dL (12.0-15.5) Hematocrit 40.5 % (36.0-47.0) Mean Corpuscular Volume 93 fL (79-100) Mean Corpuscular Hemoglobin 32 pg (25-35) Mean Corpuscular Hemoglobin Concent 34 g/dL (31-37) Red Cell Distribution Width 13.6 % (11.5-14.5) Platelet Count 386 x10^3/uL (140-400) Neutrophils (%) (Auto) 70 % (31-73) Lymphocytes (%) (Auto) 22 % (24-48) Monocytes (%) (Auto) 7 % (0-9) Eosinophils (%) (Auto) 0 % (0-3) Basophils (%) (Auto) 0 % (0-3) Neutrophils # (Auto) 1.9 x10^3/uL (1.8-7.7) Lymphocytes # (Auto) 0.6 x10^3/uL (1.0-4.8) Monocytes # (Auto) 0.2 x10^3/uL (0.0-1.1) Eosinophils # (Auto) 0.0 x10^3/uL (0.0-0.7) Basophils # (Auto) 0.0 x10^3/uL (0.0-0.2) Sodium Level 145 mmol/L (136-145) Potassium Level 4.0 mmol/L (3.5-5.1) Chloride Level 110 mmol/L (98-107) Carbon Dioxide Level 25 mmol/L (21-32) Anion Gap 10 (6-14) Blood Urea Nitrogen 21 mg/dL (7-20) Creatinine 0.7 mg/dL (0.6-1.0) Estimated GFR (Cockcroft-Gault) 87.2 BUN/Creatinine Ratio 30 (6-20) Glucose Level 144 mg/dL (70-99) Calcium Level 8.5 mg/dL (8.5-10.1) Albumin/Globulin Ratio 0.5 (1.0-1.7) Lipase 801 U/L (73-393) Laboratory Tests Test 12/21/18 05:25 White Blood Count 2.7 x10^3/uL (4.0-11.0) Red Blood Count 4.36 x10^6/uL (3.50-5.40) Hemoglobin 13.9 g/dL (12.0-15.5) Hematocrit 40.5 % (36.0-47.0) Mean Corpuscular Volume 93 fL (79-100) Mean Corpuscular Hemoglobin 32 pg (25-35) Mean Corpuscular Hemoglobin Concent 34 g/dL (31-37) Red Cell Distribution Width 13.6 % (11.5-14.5) Platelet Count 386 x10^3/uL (140-400) Neutrophils (%) (Auto) 70 % (31-73) Lymphocytes (%) (Auto) 22 % (24-48) Monocytes (%) (Auto) 7 % (0-9) Eosinophils (%) (Auto) 0 % (0-3) Basophils (%) (Auto) 0 % (0-3) Neutrophils # (Auto) 1.9 x10^3/uL (1.8-7.7) Lymphocytes # (Auto) 0.6 x10^3/uL (1.0-4.8) Monocytes # (Auto) 0.2 x10^3/uL (0.0-1.1) Eosinophils # (Auto) 0.0 x10^3/uL (0.0-0.7) Basophils # (Auto) 0.0 x10^3/uL (0.0-0.2) Sodium Level 145 mmol/L (136-145) Potassium Level 4.0 mmol/L (3.5-5.1) Chloride Level 110 mmol/L (98-107) Carbon Dioxide Level 25 mmol/L (21-32) Anion Gap 10 (6-14) Blood Urea Nitrogen 21 mg/dL (7-20) Creatinine 0.7 mg/dL (0.6-1.0) Estimated GFR (Cockcroft-Gault) 87.2 BUN/Creatinine Ratio 30 (6-20) Glucose Level 144 mg/dL (70-99) Calcium Level 8.5 mg/dL (8.5-10.1) Total Bilirubin 1.3 mg/dL (0.2-1.0) Aspartate Amino Transf (AST/SGOT) 18 U/L (15-37) Alanine Aminotransferase (ALT/SGPT) 36 U/L (14-59) Alkaline Phosphatase 109 U/L (46-116) Total Protein 5.4 g/dL (6.4-8.2) Albumin 1.9 g/dL (3.4-5.0) Albumin/Globulin Ratio 0.5 (1.0-1.7) Amylase Level 107 U/L (25-115) Lipase 801 U/L (73-393) Medications Current Medications Sodium Chloride (Normal Saline Flush) 3 ml QSHIFT PRN IV AFTER MEDS AND BLOOD DRAWS; Start 12/17/18 at 12:15 Sodium Chloride 1,000 ml @ 100 mls/hr Q10H IV Last administered on 12/20/18at 07:49; Start 12/17/18 at 12:04; Stop 12/20/18 at 17:50; Status DC Ondansetron HCl (Zofran) 4 mg PRN Q4HRS PRN IV NAUSEA/VOMITING Last administered on 12/21/18at 08:07; Start 12/17/18 at 12:15 Morphine Sulfate (Morphine Sulfate) 2 mg PRN Q2HR PRN IV MODERATE PAIN Last administered on 12/21/18at 08:07; Start 12/17/18 at 13:15 Hydromorphone HCl (Dilaudid) 1 mg PRN Q3HRS PRN IV SEVERE PAIN Last administered on 12/19/18at 07:39; Start 12/17/18 at 17:15; Stop 12/19/18 at 09:37; Status DC Ketorolac Tromethamine (Toradol 15mg Vial) 15 mg Q6HRS IV Last administered on 12/19/18at 11:55; Start 12/17/18 at 18:00; Stop 12/19/18 at 17:59; Status DC Iohexol (Omnipaque 300 Mg/ml) 100 ml STK-MED ONCE .ROUTE ; Start 12/18/18 at 07:48; Stop 12/18/18 at 07:49; Status DC Propofol 20 ml @ As Directed STK-MED ONCE IV ; Start 12/18/18 at 08:04; Stop 12/18/18 at 08:04; Status DC Lidocaine HCl (Lidocaine Pf 2% Vial) 5 ml STK-MED ONCE .ROUTE ; Start 12/18/18 at 08:04; Stop 12/18/18 at 08:04; Status DC Fentanyl Citrate (Fentanyl 2ml Vial) 100 mcg STK-MED ONCE .ROUTE ; Start 12/18/18 at 08:04; Stop 12/18/18 at 08:05; Status DC Succinylcholine Chloride (Anectine) 200 mg STK-MED ONCE .ROUTE ; Start 12/18/18 at 08:04; Stop 12/18/18 at 08:05; Status DC Ringer's Solution 1,000 ml @ 75 mls/hr 1X ONCE IV Last administered on 12/18/18at 08:36; Start 12/18/18 at 08:45; Stop 12/18/18 at 22:04; Status DC Iohexol (Omnipaque 300 Mg/ml) 50 ml STK-MED ONCE INT CAT Last administered on 12/18/18at 10:01; Start 12/18/18 at 09:32; Stop 12/18/18 at 09:42; Status DC Ondansetron HCl (Zofran) 4 mg STK-MED ONCE .ROUTE ; Start 12/18/18 at 09:46; Stop 12/18/18 at 09:46; Status DC Simethicone (Gas-X) 80 mg PRN AFTMEALHC PRN PO GAS / BLOATING Last administered on 12/19/18at 17:26; Start 12/18/18 at 18:00 Phenylephrine HCl (PHENYLEPHRINE in 0.9% NACL PF) 1 mg STK-MED ONCE IV ; Start 12/18/18 at 09:00; Stop 12/19/18 at 08:07; Status DC Dexamethasone Sodium Phosphate (Decadron) 20 mg STK-MED ONCE .ROUTE ; Start 12/18/18 at 09:00; Stop 12/19/18 at 08:07; Status DC Hydromorphone HCl (Dilaudid) 1 mg PRN Q2HR PRN IV SEVERE PAIN Last administered on 12/20/18at 14:14; Start 12/19/18 at 09:45 Polyethylene Glycol (miraLAX PACKET) 17 gm DAILY PO Last administered on 12/20/18at 07:46; Start 12/20/18 at 09:00 Polyethylene Glycol (miraLAX PACKET) 17 gm 1X ONCE PO Last administered on 12/19/18at 18:27; Start 12/19/18 at 18:00; Stop 12/19/18 at 18:01; Status DC Iohexol (Omnipaque 240 Mg/ml) 30 ml 1X ONCE PO Last administered on 12/20/18at 13:25; Start 12/20/18 at 11:30; Stop 12/20/18 at 11:31; Status DC Info (CONTRAST GIVEN -- Rx MONITORING) 1 each PRN DAILY PRN MC SEE COMMENTS; Start 12/20/18 at 11:45; Stop 12/22/18 at 11:44 Amino Acids/ Glycerin/ Electrolytes 1,000 ml @ 80 mls/hr [id number] IV Last administered on 12/21/18at 05:47; Start 12/20/18 at 18:00 Active Scripts Active Reported Percocet 5-325 Mg Tablet (Oxycodone/Acetaminophen) 1 Each Tablet 1-2 Tab PO Q4-6HRS PRN LAST DOSE GIVEN: Chlorpheniramine Maleate 4 Mg Tablet 4 Mg PO PRN PRN Hydroxyzine Pamoate 50 Mg Capsule 100 Mg PO DAILY Vitals/I & O Vital Sign - Last 24 Hours 12/20/18 12/20/18 12/20/18 12/20/18 11:00 12:09 14:13 14:14 Temp 97.3 97.3 Pulse 122 Resp 18 B/P (MAP) 144/77 (99) Pulse Ox 93 O2 Delivery Room Air Room Air Room Air Room Air 12/20/18 12/20/18 12/20/18 12/20/18 15:00 15:34 16:27 18:14 Temp 97.9 97.9 Pulse 121 116 Resp 18 B/P (MAP) 144/73 (96) 137/79 (98) Pulse Ox 95 97 O2 Delivery Room Air Room Air Room Air 12/20/18 12/20/18 12/20/18 12/20/18 19:00 19:05 19:50 21:14 Temp 98.3 98.3 Pulse 120 Resp 17 20 B/P (MAP) 141/90 (107) Pulse Ox 95 O2 Delivery Room Air Room Air Room Air Room Air 12/20/18 12/20/18 12/20/18 12/21/18 21:47 22:36 23:16 02:14 Temp 98.8 98.8 Pulse 117 Resp 20 16 20 20 B/P (MAP) 138/82 (100) Pulse Ox 100 O2 Delivery Room Air Room Air Room Air Room Air 12/21/18 12/21/18 12/21/18/7/19 03:00 04:06 05:07 06:11 Temp 98.7 98.7 Pulse 116 Resp 17 20 20 20 B/P (MAP) 134/81 (98) Pulse Ox 97 O2 Delivery Room Air Room Air Room Air 12/21/18 12/21/18 12/21/18 07:00 07:04 08:07 Temp 98.6 98.6 Pulse 111 Resp 14 20 B/P (MAP) 136/92 (107) Pulse Ox 97 O2 Delivery Room Air Room Air Room Air Intake and Output 12/20/18 12/20/18 12/21/18 15:00 23:00 07:00 Intake Total 0 ml 0 ml 1920 ml Output Total 250 ml 700 ml Balance 0 ml -250 ml 1220 ml Problem List Bile leak- s/p aleksandra postERCP pancreatitis S/p BRANDAN drain placement, tentatively ERCP with tent placement Sunday with Dr Cormier, as instructed will contract tr [facility] Sunday for possible transfer otherwise if no beds available, then Sunday am transfer, NPO, on PPN, labs noted AJAY STRAUSS MD Dec 21, 2018 09:19
[2018-12-21] MEDS: HYDROmorphone 2 MG/ML VIAL IV PRN (10:43)
[2018-12-21 11:08] VITALS: BP 133/83
--- NOTE | 2018-12-21 12:53 | PDOC ---
SURGICAL PROGRESS NOTE Subjective Pt with c/o LUQ pain and dry heaves with yellow emesis Vital Signs Vital Signs Date Time Temp Pulse Resp B/P (MAP) Pulse Ox O2 Delivery O2 Flow Rate FiO2 12/21/18 12:05 Room Air 12/21/18 11:08 98.7 115 16 133/83 (100) 93 98.7 12/21/18 10:43 5.0 I&O Intake and Output 12/21/18 06:59 Intake Total 1920 ml Output Total 950 ml Balance 970 ml Intake Oral 0 ml IV Total 960 ml Other 960 ml Output Emesis 400 ml Drainage Total 550 ml General: Alert, Oriented X3, Cooperative, mild distress Abdomen: Soft, Other (min TTP LUQ, BRANDAN bilious) Labs Laboratory Tests Test 12/19/18 22:10 12/20/18 06:35 12/21/18 05:25 Urine Collection Type Unknown Urine Color Samantha Urine Clarity Clear Urine pH 6.0 Urine Specific [place] 1.025 Urine Protein 30 mg/dL (NEG-TRACE) Urine Glucose (UA) Negative mg/dL (NEG) Urine Ketones (Stick) 15 mg/dL (NEG) Urine Blood Negative (NEG) Urine Nitrite Negative (NEG) Urine Bilirubin Small (NEG) Urine Urobilinogen Dipstick 1.0 mg/dL (0.2 mg/dL) Urine Leukocyte Esterase Negative (NEG) Urine RBC Occ /HPF (0-2) Urine WBC Occ /HPF (0-4) Urine Squamous Epithelial Cells Occ /LPF Urine Transitional Epithelial Cells Occ /LPF Urine Bacteria 0 /HPF (0-FEW) Urine Mucus Marked /LPF Total Bilirubin 1.3 mg/dL (0.2-1.0) 1.3 mg/dL (0.2-1.0) Direct Bilirubin 0.8 mg/dL (0.0-0.2) Aspartate Amino Transf (AST/SGOT) 21 U/L (15-37) 18 U/L (15-37) Alanine Aminotransferase (ALT/SGPT) 57 U/L (14-59) 36 U/L (14-59) Alkaline Phosphatase 137 U/L (46-116) 109 U/L (46-116) Total Protein 5.8 g/dL (6.4-8.2) 5.4 g/dL (6.4-8.2) Albumin 2.2 g/dL (3.4-5.0) 1.9 g/dL (3.4-5.0) Amylase Level 201 U/L (25-115) 107 U/L (25-115) White Blood Count 2.7 x10^3/uL (4.0-11.0) Red Blood Count 4.36 x10^6/uL (3.50-5.40) Hemoglobin 13.9 g/dL (12.0-15.5) Hematocrit 40.5 % (36.0-47.0) Mean Corpuscular Volume 93 fL (79-100) Mean Corpuscular Hemoglobin 32 pg (25-35) Mean Corpuscular Hemoglobin Concent 34 g/dL (31-37) Red Cell Distribution Width 13.6 % (11.5-14.5) Platelet Count 386 x10^3/uL (140-400) Neutrophils (%) (Auto) 70 % (31-73) Lymphocytes (%) (Auto) 22 % (24-48) Monocytes (%) (Auto) 7 % (0-9) Eosinophils (%) (Auto) 0 % (0-3) Basophils (%) (Auto) 0 % (0-3) Neutrophils # (Auto) 1.9 x10^3/uL (1.8-7.7) Lymphocytes # (Auto) 0.6 x10^3/uL (1.0-4.8) Monocytes # (Auto) 0.2 x10^3/uL (0.0-1.1) Eosinophils # (Auto) 0.0 x10^3/uL (0.0-0.7) Basophils # (Auto) 0.0 x10^3/uL (0.0-0.2) Sodium Level 145 mmol/L (136-145) Potassium Level 4.0 mmol/L (3.5-5.1) Chloride Level 110 mmol/L (98-107) Carbon Dioxide Level 25 mmol/L (21-32) Anion Gap 10 (6-14) Blood Urea Nitrogen 21 mg/dL (7-20) Creatinine 0.7 mg/dL (0.6-1.0) Estimated GFR (Cockcroft-Gault) 87.2 BUN/Creatinine Ratio 30 (6-20) Glucose Level 144 mg/dL (70-99) Calcium Level 8.5 mg/dL (8.5-10.1) Albumin/Globulin Ratio 0.5 (1.0-1.7) Lipase 801 U/L (73-393) Laboratory Tests Test 12/21/18 05:25 White Blood Count 2.7 x10^3/uL (4.0-11.0) Red Blood Count 4.36 x10^6/uL (3.50-5.40) Hemoglobin 13.9 g/dL (12.0-15.5) Hematocrit 40.5 % (36.0-47.0) Mean Corpuscular Volume 93 fL (79-100) Mean Corpuscular Hemoglobin 32 pg (25-35) Mean Corpuscular Hemoglobin Concent 34 g/dL (31-37) Red Cell Distribution Width 13.6 % (11.5-14.5) Platelet Count 386 x10^3/uL (140-400) Neutrophils (%) (Auto) 70 % (31-73) Lymphocytes (%) (Auto) 22 % (24-48) Monocytes (%) (Auto) 7 % (0-9) Eosinophils (%) (Auto) 0 % (0-3) Basophils (%) (Auto) 0 % (0-3) Neutrophils # (Auto) 1.9 x10^3/uL (1.8-7.7) Lymphocytes # (Auto) 0.6 x10^3/uL (1.0-4.8) Monocytes # (Auto) 0.2 x10^3/uL (0.0-1.1) Eosinophils # (Auto) 0.0 x10^3/uL (0.0-0.7) Basophils # (Auto) 0.0 x10^3/uL (0.0-0.2) Sodium Level 145 mmol/L (136-145) Potassium Level 4.0 mmol/L (3.5-5.1) Chloride Level 110 mmol/L (98-107) Carbon Dioxide Level 25 mmol/L (21-32) Anion Gap 10 (6-14) Blood Urea Nitrogen 21 mg/dL (7-20) Creatinine 0.7 mg/dL (0.6-1.0) Estimated GFR (Cockcroft-Gault) 87.2 BUN/Creatinine Ratio 30 (6-20) Glucose Level 144 mg/dL (70-99) Calcium Level 8.5 mg/dL (8.5-10.1) Total Bilirubin 1.3 mg/dL (0.2-1.0) Aspartate Amino Transf (AST/SGOT) 18 U/L (15-37) Alanine Aminotransferase (ALT/SGPT) 36 U/L (14-59) Alkaline Phosphatase 109 U/L (46-116) Total Protein 5.4 g/dL (6.4-8.2) Albumin 1.9 g/dL (3.4-5.0) Albumin/Globulin Ratio 0.5 (1.0-1.7) Amylase Level 107 U/L (25-115) Lipase 801 U/L (73-393) Problem List bile leak cont BRANDAN await improved bowel fxn plans for stent at [facility] on 12/23 ESTEFANÍA DUEÑAS MD Dec 21, 2018 12:53
--- NOTE | 2018-12-21 13:47 | RAD ---
Limited ultrasound of the abdomen 12/20/2018 CLINICAL HISTORY: Bile leak. Assess for fluid. TECHNIQUE: A real-time ultrasound examination of all 4 quadrants of the abdomen was performed. Multiple images were obtained. FINDINGS: The gallbladder is not visualized consistent with a cholecystectomy. There is a small right pleural effusion. A moderate amount of ascites is seen throughout the abdomen. The common bile duct measures 1 cm in diameter which is mildly dilated. IMPRESSION: Moderate amount of ascites. Electronically signed by: Carlos Alberto Graves MD (12/21/2018 1:44 PM) [facility]
[2018-12-21 15:00] VITALS: BP 140/91
[2018-12-21 19:00] VITALS: BP 141/80
[2018-12-21 23:00] VITALS: BP 131/79
[2018-12-22] MEDS: MORPHINE SULFATE 2 MG/ML VIAL. IV PRN ×2 (02:52→16:58)
[2018-12-22] MEDS: ONDANSETRON PF 4 MG/2 ML VIAL. IV PRN ×3 (02:52→10:51)
[2018-12-22 03:00] VITALS: BP 127/77
[2018-12-22] MEDS: AMINO AC 3%/ELECTROLYTE/GLYCER 1,000 ML IV SCH (06:30)
[2018-12-22 07:00] VITALS: BP 125/74
[2018-12-22] MEDS: POLYETHYLENE GLYCOL 3350 17 GM PACKET. PO SCH (08:39)
[2018-12-22 10:01] LABS: BASO % 0 % (0-3); EOS # 0.2 x10^3/uL (0.0-0.7); EOS % 4 % (0-3); HEMATOCRIT 36.6 % (36.0-47.0); HEMOGLOBIN 12.4 g/dL (12.0-15.5); LYMPH % 22 % (24-48); MEAN CORPUSCULAR HEMOGLOBIN 31 pg (25-35); MEAN CORPUSCULAR HGB CONC 34 g/dL (31-37); MEAN CORPUSCULAR VOLUME 92 fL (79-100); MONO # 0.3 x10^3/uL (0.0-1.1); MONO % 7 % (0-9); NEUT % 67 % (31-73); PLATELET COUNT 382 x10^3/uL (140-400); RED BLOOD COUNT 3.97 x10^6/uL (3.50-5.40); RED CELL DISTRIBUTION WIDTH 13.6 % (11.5-14.5); WHITE BLOOD COUNT 4.6 x10^3/uL (4.0-11.0)
[2018-12-22 10:30] LABS: ALBUMIN 1.7 g/dL (3.4-5.0); ALBUMIN/GLOBULIN RATIO 0.4 (1.0-1.7); CALCIUM 8.4 mg/dL (8.5-10.1); CREATININE 0.7 mg/dL (0.6-1.0); GFR 87.2; POTASSIUM 4.1 mmol/L (3.5-5.1); TOTAL BILIRUBIN 0.7 mg/dL (0.2-1.0); TOTAL PROTEIN 5.8 g/dL (6.4-8.2)
[2018-12-22 11:00] VITALS: BP 125/74
[2018-12-22 11:05] VITALS: BP 126/70
--- NOTE | 2018-12-22 11:56 | PDOC ---
G I PROGRESS NOTE Reason for Follow-up abd pain s/p bile leak Subjective feeling better Physical Exam Lungs clear CV S1S2 Abd +BS , less distended, BRANDAN drain in place Review of Relevant I have reviewed the following items betty (where applicable) has been applied. Labs Laboratory Tests Test 12/21/18 05:25 12/22/18 09:30 White Blood Count 2.7 x10^3/uL (4.0-11.0) 4.6 x10^3/uL (4.0-11.0) Red Blood Count 4.36 x10^6/uL (3.50-5.40) 3.97 x10^6/uL (3.50-5.40) Hemoglobin 13.9 g/dL (12.0-15.5) 12.4 g/dL (12.0-15.5) Hematocrit 40.5 % (36.0-47.0) 36.6 % (36.0-47.0) Mean Corpuscular Volume 93 fL (79-100) 92 fL (79-100) Mean Corpuscular Hemoglobin 32 pg (25-35) 31 pg (25-35) Mean Corpuscular Hemoglobin Concent 34 g/dL (31-37) 34 g/dL (31-37) Red Cell Distribution Width 13.6 % (11.5-14.5) 13.6 % (11.5-14.5) Platelet Count 386 x10^3/uL (140-400) 382 x10^3/uL (140-400) Neutrophils (%) (Auto) 70 % (31-73) 67 % (31-73) Lymphocytes (%) (Auto) 22 % (24-48) 22 % (24-48) Monocytes (%) (Auto) 7 % (0-9) 7 % (0-9) Eosinophils (%) (Auto) 0 % (0-3) 4 % (0-3) Basophils (%) (Auto) 0 % (0-3) 0 % (0-3) Neutrophils # (Auto) 1.9 x10^3/uL (1.8-7.7) 3.0 x10^3/uL (1.8-7.7) Lymphocytes # (Auto) 0.6 x10^3/uL (1.0-4.8) 1.0 x10^3/uL (1.0-4.8) Monocytes # (Auto) 0.2 x10^3/uL (0.0-1.1) 0.3 x10^3/uL (0.0-1.1) Eosinophils # (Auto) 0.0 x10^3/uL (0.0-0.7) 0.2 x10^3/uL (0.0-0.7) Basophils # (Auto) 0.0 x10^3/uL (0.0-0.2) 0.0 x10^3/uL (0.0-0.2) Sodium Level 145 mmol/L (136-145) 142 mmol/L (136-145) Potassium Level 4.0 mmol/L (3.5-5.1) 4.1 mmol/L (3.5-5.1) Chloride Level 110 mmol/L (98-107) 108 mmol/L (98-107) Carbon Dioxide Level 25 mmol/L (21-32) 28 mmol/L (21-32) Anion Gap 10 (6-14) 6 (6-14) Blood Urea Nitrogen 21 mg/dL (7-20) 21 mg/dL (7-20) Creatinine 0.7 mg/dL (0.6-1.0) 0.7 mg/dL (0.6-1.0) Estimated GFR (Cockcroft-Gault) 87.2 87.2 BUN/Creatinine Ratio 30 (6-20) 30 (6-20) Glucose Level 144 mg/dL (70-99) 113 mg/dL (70-99) Calcium Level 8.5 mg/dL (8.5-10.1) 8.4 mg/dL (8.5-10.1) Total Bilirubin 1.3 mg/dL (0.2-1.0) 0.7 mg/dL (0.2-1.0) Aspartate Amino Transf (AST/SGOT) 18 U/L (15-37) 14 U/L (15-37) Alanine Aminotransferase (ALT/SGPT) 36 U/L (14-59) 24 U/L (14-59) Alkaline Phosphatase 109 U/L (46-116) 87 U/L (46-116) Total Protein 5.4 g/dL (6.4-8.2) 5.8 g/dL (6.4-8.2) Albumin 1.9 g/dL (3.4-5.0) 1.7 g/dL (3.4-5.0) Albumin/Globulin Ratio 0.5 (1.0-1.7) 0.4 (1.0-1.7) Amylase Level 107 U/L (25-115) Lipase 801 U/L (73-393) Laboratory Tests Test 12/22/18 09:30 White Blood Count 4.6 x10^3/uL (4.0-11.0) Red Blood Count 3.97 x10^6/uL (3.50-5.40) Hemoglobin 12.4 g/dL (12.0-15.5) Hematocrit 36.6 % (36.0-47.0) Mean Corpuscular Volume 92 fL (79-100) Mean Corpuscular Hemoglobin 31 pg (25-35) Mean Corpuscular Hemoglobin Concent 34 g/dL (31-37) Red Cell Distribution Width 13.6 % (11.5-14.5) Platelet Count 382 x10^3/uL (140-400) Neutrophils (%) (Auto) 67 % (31-73) Lymphocytes (%) (Auto) 22 % (24-48) Monocytes (%) (Auto) 7 % (0-9) Eosinophils (%) (Auto) 4 % (0-3) Basophils (%) (Auto) 0 % (0-3) Neutrophils # (Auto) 3.0 x10^3/uL (1.8-7.7) Lymphocytes # (Auto) 1.0 x10^3/uL (1.0-4.8) Monocytes # (Auto) 0.3 x10^3/uL (0.0-1.1) Eosinophils # (Auto) 0.2 x10^3/uL (0.0-0.7) Basophils # (Auto) 0.0 x10^3/uL (0.0-0.2) Sodium Level 142 mmol/L (136-145) Potassium Level 4.1 mmol/L (3.5-5.1) Chloride Level 108 mmol/L (98-107) Carbon Dioxide Level 28 mmol/L (21-32) Anion Gap 6 (6-14) Blood Urea Nitrogen 21 mg/dL (7-20) Creatinine 0.7 mg/dL (0.6-1.0) Estimated GFR (Cockcroft-Gault) 87.2 BUN/Creatinine Ratio 30 (6-20) Glucose Level 113 mg/dL (70-99) Calcium Level 8.4 mg/dL (8.5-10.1) Total Bilirubin 0.7 mg/dL (0.2-1.0) Aspartate Amino Transf (AST/SGOT) 14 U/L (15-37) Alanine Aminotransferase (ALT/SGPT) 24 U/L (14-59) Alkaline Phosphatase 87 U/L (46-116) Total Protein 5.8 g/dL (6.4-8.2) Albumin 1.7 g/dL (3.4-5.0) Albumin/Globulin Ratio 0.4 (1.0-1.7) Medications Current Medications Sodium Chloride (Normal Saline Flush) 3 ml QSHIFT PRN IV AFTER MEDS AND BLOOD DRAWS; Start 12/17/18 at 12:15 Sodium Chloride 1,000 ml @ 100 mls/hr Q10H IV Last administered on 12/20/18at 07:49; Start 12/17/18 at 12:04; Stop 12/20/18 at 17:50; Status DC Ondansetron HCl (Zofran) 4 mg PRN Q4HRS PRN IV NAUSEA/VOMITING Last administer ed on 12/22/18at 10:51; Start 12/17/18 at 12:15 Morphine Sulfate (Morphine Sulfate) 2 mg PRN Q2HR PRN IV MODERATE PAIN Last administered on 12/22/18at 02:52; Start 12/17/18 at 13:15 Hydromorphone HCl (Dilaudid) 1 mg PRN Q3HRS PRN IV SEVERE PAIN Last administer ed on 12/19/18at 07:39; Start 12/17/18 at 17:15; Stop 12/19/18 at 09:37; Status DC Ketorolac Tromethamine (Toradol 15mg Vial) 15 mg Q6HRS IV Last administered on 12/19/18at 11:55; Start 12/17/18 at 18:00; Stop 12/19/18 at 17:59; Status DC Iohexol (Omnipaque 300 Mg/ml) 100 ml STK-MED ONCE .ROUTE ; Start 12/18/18 at 07:48; Stop 12/18/18 at 07:49; Status DC Propofol 20 ml @ As Directed STK-MED ONCE IV ; Start 12/18/18 at 08:04; Stop 12/18/18 at 08:04; Status DC Lidocaine HCl (Lidocaine Pf 2% Vial) 5 ml STK-MED ONCE .ROUTE ; Start 12/18/18 at 08:04; Stop 12/18/18 at 08:04; Status DC Fentanyl Citrate (Fentanyl 2ml Vial) 100 mcg STK-MED ONCE .ROUTE ; Start 12/18/18 at 08:04; Stop 12/18/18 at 08:05; Status DC Succinylcholine Chloride (Anectine) 200 mg STK-MED ONCE .ROUTE ; Start 12/18/18 at 08:04; Stop 12/18/18 at 08:05; Status DC Ringer's Solution 1,000 ml @ 75 mls/hr 1X ONCE IV Last administered on 12/18/18at 08:36; Start 12/18/18 at 08:45; Stop 12/18/18 at 22:04; Status DC Iohexol (Omnipaque 300 Mg/ml) 50 ml STK-MED ONCE INT CAT Last administered on 12/18/18at 10:01; Start 12/18/18 at 09:32; Stop 12/18/18 at 09:42; Status DC Ondansetron HCl (Zofran) 4 mg STK-MED ONCE .ROUTE ; Start 12/18/18 at 09:46; Stop 12/18/18 at 09:46; Status DC Simethicone (Gas-X) 80 mg PRN AFTMEALHC PRN PO GAS / BLOATING Last administered on 12/19/18at 17:26; Start 12/18/18 at 18:00 Phenylephrine HCl (PHENYLEPHRINE in 0.9% NACL PF) 1 mg STK-MED ONCE IV ; Start 12/18/18 at 09:00; Stop 12/19/18 at 08:07; Status DC Dexamethasone Sodium Phosphate (Decadron) 20 mg STK-MED ONCE .ROUTE ; Start 12/18/18 at 09:00; Stop 12/19/18 at 08:07; Status DC Hydromorphone HCl (Dilaudid) 1 mg PRN Q2HR PRN IV SEVERE PAIN Last administered on 12/21/18at 10:43; Start 12/19/18 at 09:45 Polyethylene Glycol (miraLAX PACKET) 17 gm DAILY PO Last administered on 12/20/18at 07:46; Start 12/20/18 at 09:00 Polyethylene Glycol (miraLAX PACKET) 17 gm 1X ONCE PO Last administered on 12/19/18at 18:27; Start 12/19/18 at 18:00; Stop 12/19/18 at 18:01; Status DC Iohexol (Omnipaque 240 Mg/ml) 30 ml 1X ONCE PO Last administered on 12/20/18at 13:25; Start 12/20/18 at 11:30; Stop 12/20/18 at 11:31; Status DC Info (CONTRAST GIVEN -- Rx MONITORING) 1 each PRN DAILY PRN MC SEE COMMENTS; Start 12/20/18 at 11:45; Stop 12/22/18 at 11:44; Status DC Amino Acids/ Glycerin/ Electrolytes 1,000 ml @ 80 mls/hr [id number] IV Last administered on 12/22/18at 06:30; Start 12/20/18 at 18:00 Active Scripts Active Reported Percocet 5-325 Mg Tablet (Oxycodone/Acetaminophen) 1 Each Tablet 1-2 Tab PO Q4-6HRS PRN LAST DOSE GIVEN: Chlorpheniramine Maleate 4 Mg Tablet 4 Mg PO PRN PRN Hydroxyzine Pamoate 50 Mg Capsule 100 Mg PO DAILY Vitals/I & O Vital Sign - Last 24 Hours 12/21/18 12/21/18 12/21/18 12/21/18 12:05 12:54 13:36 15:00 Temp 98.5 98.5 Pulse 112 Resp 14 B/P (MAP) 140/91 (107) Pulse Ox 95 O2 Delivery Room Air Room Air Room Air Room Air 12/21/18 12/21/18 12/21/18 12/21/18 19:00 20:00 23:00 23:30 Temp 97.8 99.0 97.8 99.0 Pulse 104 99 Resp 18 20 B/P (MAP) 141/80 (100) 131/79 (96) Pulse Ox 95 96 95 O2 Delivery Room Air Room Air Room Air Room Air O2 Flow Rate 5.0 9/8/19 9/8/19 9/8/19 9/8/19 02:52 03:00 07:00 11:05 Temp 99.0 97.5 97.8 99.0 97.5 97.8 Pulse 84 87 85 Resp 18 16 18 B/P (MAP) 127/77 (94) 125/74 (91) 126/70 (88) Pulse Ox 95 97 96 97 O2 Delivery Room Air Room Air Room Air Room Air O2 Flow Rate 5.0 Intake and Output 12/21/18 12/21/18 12/22/18 15:00 23:00 07:00 Intake Total 0 ml 0 ml Output Total 370 ml 2400 ml 625 ml Balance -370 ml -2400 ml -625 ml Problem List Abd pain-s/p aleksandra , with bile leak , prior unsuccessful ERCP with unsuccessful stent placement, transfer to [facility] for Dr Cormier for possible stent placement in am, 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 AJAY STRAUSS MD Dec 22, 2018 11:56
[2018-12-22 15:00] VITALS: BP 126/68
--- NOTE | 2018-12-22 16:59 | NUR ---
Discharge Note: [facility] [place] Discharge instructions and discharge home medications reviewed with [[email or web address]] and a copy given. All questions have been answered and understanding verbalized. The following instructions and handouts were given: pancreatitis, bile duct stent Discontinued lines and drains: peripheral line intact. Patient discharged to [facility] for stent placement, via EMS transport. Report called to accepting facility.
--- NOTE | 2018-12-22 17:04 | PDOC ---
SURGICAL PROGRESS NOTE Subjective Pt feels better, being transported for stent Vital Signs Vital Signs Date Time Temp Pulse Resp B/P (MAP) Pulse Ox O2 Delivery O2 Flow Rate FiO2 12/22/18 16:58 16 Room Air 12/22/18 15:00 97.6 87 126/68 (87) 95 97.6 12/22/18 02:52 5.0 I&O Intake and Output 12/22/18 07:00 Intake Total 0 ml Output Total 3395 ml Balance -3395 ml Intake Oral 0 ml IV Total 0 ml Output Urine Total 950 ml Drainage Total 2445 ml General: Alert, Oriented X3, Cooperative, No acute distress Abdomen: Soft, No tenderness, Other (BRANDAN bilious) Labs Laboratory Tests Test 12/21/18 05:25 12/22/18 09:30 White Blood Count 2.7 x10^3/uL (4.0-11.0) 4.6 x10^3/uL (4.0-11.0) Red Blood Count 4.36 x10^6/uL (3.50-5.40) 3.97 x10^6/uL (3.50-5.40) Hemoglobin 13.9 g/dL (12.0-15.5) 12.4 g/dL (12.0-15.5) Hematocrit 40.5 % (36.0-47.0) 36.6 % (36.0-47.0) Mean Corpuscular Volume 93 fL (79-100) 92 fL (79-100) Mean Corpuscular Hemoglobin 32 pg (25-35) 31 pg (25-35) Mean Corpuscular Hemoglobin Concent 34 g/dL (31-37) 34 g/dL (31-37) Red Cell Distribution Width 13.6 % (11.5-14.5) 13.6 % (11.5-14.5) Platelet Count 386 x10^3/uL (140-400) 382 x10^3/uL (140-400) Neutrophils (%) (Auto) 70 % (31-73) 67 % (31-73) Lymphocytes (%) (Auto) 22 % (24-48) 22 % (24-48) Monocytes (%) (Auto) 7 % (0-9) 7 % (0-9) Eosinophils (%) (Auto) 0 % (0-3) 4 % (0-3) Basophils (%) (Auto) 0 % (0-3) 0 % (0-3) Neutrophils # (Auto) 1.9 x10^3/uL (1.8-7.7) 3.0 x10^3/uL (1.8-7.7) Lymphocytes # (Auto) 0.6 x10^3/uL (1.0-4.8) 1.0 x10^3/uL (1.0-4.8) Monocytes # (Auto) 0.2 x10^3/uL (0.0-1.1) 0.3 x10^3/uL (0.0-1.1) Eosinophils # (Auto) 0.0 x10^3/uL (0.0-0.7) 0.2 x10^3/uL (0.0-0.7) Basophils # (Auto) 0.0 x10^3/uL (0.0-0.2) 0.0 x10^3/uL (0.0-0.2) Sodium Level 145 mmol/L (136-145) 142 mmol/L (136-145) Potassium Level 4.0 mmol/L (3.5-5.1) 4.1 mmol/L (3.5-5.1) Chloride Level 110 mmol/L (98-107) 108 mmol/L (98-107) Carbon Dioxide Level 25 mmol/L (21-32) 28 mmol/L (21-32) Anion Gap 10 (6-14) 6 (6-14) Blood Urea Nitrogen 21 mg/dL (7-20) 21 mg/dL (7-20) Creatinine 0.7 mg/dL (0.6-1.0) 0.7 mg/dL (0.6-1.0) Estimated GFR (Cockcroft-Gault) 87.2 87.2 BUN/Creatinine Ratio 30 (6-20) 30 (6-20) Glucose Level 144 mg/dL (70-99) 113 mg/dL (70-99) Calcium Level 8.5 mg/dL (8.5-10.1) 8.4 mg/dL (8.5-10.1) Total Bilirubin 1.3 mg/dL (0.2-1.0) 0.7 mg/dL (0.2-1.0) Aspartate Amino Transf (AST/SGOT) 18 U/L (15-37) 14 U/L (15-37) Alanine Aminotransferase (ALT/SGPT) 36 U/L (14-59) 24 U/L (14-59) Alkaline Phosphatase 109 U/L (46-116) 87 U/L (46-116) Total Protein 5.4 g/dL (6.4-8.2) 5.8 g/dL (6.4-8.2) Albumin 1.9 g/dL (3.4-5.0) 1.7 g/dL (3.4-5.0) Albumin/Globulin Ratio 0.5 (1.0-1.7) 0.4 (1.0-1.7) Amylase Level 107 U/L (25-115) Lipase 801 U/L (73-393) Laboratory Tests Test 12/22/18 09:30 White Blood Count 4.6 x10^3/uL (4.0-11.0) Red Blood Count 3.97 x10^6/uL (3.50-5.40) Hemoglobin 12.4 g/dL (12.0-15.5) Hematocrit 36.6 % (36.0-47.0) Mean Corpuscular Volume 92 fL (79-100) Mean Corpuscular Hemoglobin 31 pg (25-35) Mean Corpuscular Hemoglobin Concent 34 g/dL (31-37) Red Cell Distribution Width 13.6 % (11.5-14.5) Platelet Count 382 x10^3/uL (140-400) Neutrophils (%) (Auto) 67 % (31-73) Lymphocytes (%) (Auto) 22 % (24-48) Monocytes (%) (Auto) 7 % (0-9) Eosinophils (%) (Auto) 4 % (0-3) Basophils (%) (Auto) 0 % (0-3) Neutrophils # (Auto) 3.0 x10^3/uL (1.8-7.7) Lymphocytes # (Auto) 1.0 x10^3/uL (1.0-4.8) Monocytes # (Auto) 0.3 x10^3/uL (0.0-1.1) Eosinophils # (Auto) 0.2 x10^3/uL (0.0-0.7) Basophils # (Auto) 0.0 x10^3/uL (0.0-0.2) Sodium Level 142 mmol/L (136-145) Potassium Level 4.1 mmol/L (3.5-5.1) Chloride Level 108 mmol/L (98-107) Carbon Dioxide Level 28 mmol/L (21-32) Anion Gap 6 (6-14) Blood Urea Nitrogen 21 mg/dL (7-20) Creatinine 0.7 mg/dL (0.6-1.0) Estimated GFR (Cockcroft-Gault) 87.2 BUN/Creatinine Ratio 30 (6-20) Glucose Level 113 mg/dL (70-99) Calcium Level 8.4 mg/dL (8.5-10.1) Total Bilirubin 0.7 mg/dL (0.2-1.0) Aspartate Amino Transf (AST/SGOT) 14 U/L (15-37) Alanine Aminotransferase (ALT/SGPT) 24 U/L (14-59) Alkaline Phosphatase 87 U/L (46-116) Total Protein 5.8 g/dL (6.4-8.2) Albumin 1.7 g/dL (3.4-5.0) Albumin/Globulin Ratio 0.4 (1.0-1.7) Problem List bile leak improving ERCP per ESTEFANÍA URIARTE MD Dec 22, 2018 17:04
--- NOTE | 2018-12-23 08:29 | RAD ---
12/23/2018 6:24 AM Procedure: Placement of right lower quadrant peritoneal drain Clinical Indication: bile leak - increasing fluid on CT, ?drain Discussion: The procedure was explained in its entirety to the patient or the patients designated administrative representative by a member of the treatment team, including a discussion of the risks, benefits and commonly accepted alternatives to the procedure, as well as the expected consequences of no therapy whatsoever. Discussion of the risks included, but was not limited to, those that are most frequent and those that are rare but possibly severe or life-threatening, as well as the possibility of unforeseen complications. All elements of maximal sterile barrier technique including the use of a cap, mask, sterile gown, sterile gloves, large sterile sheet, appropriate hand hygiene, and 2% chlorhexidine for cutaneous antisepsis (or acceptable alternative antiseptic per current guidelines) were followed for this procedure. Ultrasound evaluation demonstrates small amount of free fluid in the right lower quadrant. The overlying skin was prepped and draped using sterile barrier technique. 1% lidocaine was administered for local anesthesia. Under direct ultrasound guidance a micropuncture needle was advanced into the peritoneal space. Following a series of exchanges a 10 [place] drain was placed. Bile was freely aspirated. The catheter was secured in place. Sterile dressings were applied. Impression: Ultrasound-guided placement, right lower quadrant peritoneal drain. Bile freely aspirated.
== END 2018-12-22 16:59 | disposition short-term general hospital (02) | DRG 444 ==
LOC: 4 NORTH 11:48 → OBSVTOIN 12-18 12:54
PROVIDERS: ADMIT Surgery; ATTEND Surgery
PROC: 0FJD8ZZ Inspection of Pancreatic Duct, Via Natural or Artificial Opening Endoscopic (ICD-10-PCS; principal; 2018-12-18 09:00)
PROC: 0W9G30Z Drainage of Peritoneal Cavity with Drainage Device, Percutaneous Approach (ICD-10-PCS; 2018-12-22)
DX: K83.8 Other specified diseases of biliary tract (principal); K85.80 Other acute pancreatitis without necrosis or infection; K59.00 Constipation, unspecified; K57.90 Diverticulosis of intestine, part unspecified, without perforation or abscess without bleeding; Y84.8 Other medical procedures as the cause of abnormal reaction of the patient, or of later complication, without mention of misadventure at the time of the procedure; Z90.49 Acquired absence of other specified parts of digestive tract
CPT/HCPCS: 36415; 43260; 49406; 74176; 74329; 76705; 78226; 80053; 80076; 81001; 82150; 82248; 83690; 85025; 96374; A7015; A9537; C1729; C1757; C1769; C1894; G0378; G0379; J0330; J1100; J1170; J1885; J2001; J2270; J2370; J2405; J2704; J3010; J7030; J7120; Q9966; Q9967

== ENCOUNTER → 2020-08-16 | Outpatient (CLI) | payer OTHER ==
--- NOTE | 2020-08-18 11:30 | RAD ---
INDICATION: 55 years of age asymptomatic female patient presents for screening mammography. TECHNIQUE: Full field craniocaudal and mediolateral oblique images of both breasts were obtained usi ng digital technique with tomosynthesis and also analyzed with computer-aided detection software. COMPARISON: Prior mammographic imaging dating back to 11/02/2014. BREAST COMPOSITION: Category D: The breasts are extremely dense. This may lower the sensitivity of m ammography. FINDINGS: Benign calcifications are present. The parenchymal pattern appears stable. No suspicious masses, microcalcifications or architectural distortion is present to suggest malignanc y in either breast. The visualized axillae are unremarkable. IMPRESSION: No mammographic evidence of malignancy. RECOMMENDATION: Annual screening mammography is recommended, unless clinically indicated sooner based on symptoms or change in physical exam. BIRADS 2: BENIGN This study was interpreted with the benefit of Computerized Aided Detection (CAD). ?Your patient's mammogram demonstrates that she has dense breast tissue (breast density category C or D), which could hide abnormalities, and if she has other risk factors for breast cancer that have be en identified, she might benefit from supplemental screening tests that may be suggested by you as he r ordering physician. Dense breast tissue, in and of itself, is a relatively common condition. Theref ore, this information is not provided to cause undue concern, but rather to raise your awareness and to promote discussion with your patient regarding the presence of other risk factors, in addition to dense breast tissue. Your patient's mammography results will be sent to her. Patient information is entered into the reminder system with a target due date for the next screening mammogram. Mammography is the most sensitive method for finding small breast cancers, but it does not detect the m all and is not a substitute for careful clinical examination. A negative mammogram does not negate a clinically suspicious finding and should not result in delay in biopsying a clinically suspicious a bnormality. "Our facility is accredited by the [employer] Mammography Program." Electronically signed by: David Davila MD (08/18/2020 11:27 AM) [facility]
== END ==
LOC: MAMMO 09:03
PROVIDERS: ATTEND Obstetrics & Gynecology
DX: Z12.31 Encounter for screening mammogram for malignant neoplasm of breast (principal)
CPT/HCPCS: 77063; 77067